=== PATIENT | female | born 1990 | race Caucasian/White ===

== ENCOUNTER 2018-08-23 11:55 | Emergency (ER) | payer OTHER ==
[2018-08-23 12:01] VITALS: RESP 16
[2018-08-23] MEDS ORDERED: SODIUM CHLORIDE 0.9% 1,000 ML IV STA ×2 (12:26→14:40)
--- NOTE | 2018-08-23 12:28 | ED ---
General Adult HPI - General Chief complaint: Arrhythmia/Palpitations Stated complaint: palpitations Time Seen by Provider: 08/23/18 12:05 Source: patient, RN notes reviewed Mode of arrival: ambulatory Limitations: no limitations - History of Present Illness Initial comments: 27-year-old female with a past medical history for GERD presents to the emergen cy department for a chief complaint of palpitations. Patient states she was at her first day at work when she started to feel her heart racing fast. States that she started to feel her face flush and felt like she was going to pass out. Patient states this happened 2 more times since 9:30 AM when the first episode occurred. Patient states that they did an EKG there that looked normal but fast. States she did feel nervous when this started but did not think she was there is enough to cause her to almost pass out. Patient did take Xanax this morning because she has a history of anxiety. Patient states she has felt like she has had a racing heart before but has never felt like she was going to pass out from it. Patient denies a full syncopal episode. Denies any chest pain or shortness of breath.Patient has no other complaints at this time including shortness of breath, chest pain, abdominal pain, nausea or vomiting, headache, or visual changes. - Related Data Home Medications Medication Instructions Recorded Confirmed ALPRAZolam [Xanax] 0.25 mg PO DAILY PRN 08/23/18 08/23/18 Gianvi 1 tab PO HS 08/23/18 08/23/18 Pantoprazole Sodium [Protonix] 40 mg PO BID PRN 08/23/18 08/23/18 Allergies Allergy/AdvReac Type Severity Reaction Status Date / Time Penicillins Allergy Unknown Verified 08/23/18 13:17 Review of Systems ROS Statement: Those systems with pertinent positive or pertinent negative responses have been documented in the HPI. ROS Other: All systems not noted in ROS Statement are negative. Past Medical History Past Medical History: GERD/Reflux History of Any Multi-Drug Resistant Organisms: None Reported Past Surgical History: Appendectomy Past Psychological History: Anxiety Smoking Status: Never smoker Past Alcohol Use History: Occasional Past Drug Use History: None Reported General Exam Limitations: no limitations General appearance: alert, anxious Head exam: Present: atraumatic, normocephalic, normal inspection Eye exam: Present: normal appearance, PERRL, EOMI. Absent: scleral icterus, conjunctival injection, periorbital swelling ENT exam: Present: normal exam, mucous membranes moist Neck exam: Present: normal inspection, full ROM. Absent: tenderness, meningismus, lymphadenopathy Respiratory exam: Present: normal lung sounds bilaterally. Absent: respiratory distress, wheezes, rales, rhonchi, stridor Cardiovascular Exam: Present: regular rate, normal rhythm, normal heart sounds. Absent: systolic murmur, diastolic murmur, rubs, gallop, clicks GI/Abdominal exam: Present: soft, normal bowel sounds. Absent: distended, tenderness, guarding, rebound, rigid Neurological exam: Present: alert, oriented X3, CN II-XII intact Psychiatric exam: Present: normal affect, normal mood Course Vital Signs 08/23/18 08/23/18 08/23/18 11:58 16:00 16:38 Temperature 97.5 F L 98.0 F Pulse Rate 117 H 101 H Pulse Rate [ 103 H Left Sitting Pulse Oximetery ] Pulse Rate [ 116 H Left Standing Pulse Oximetery ] Pulse Rate [ 96 Left Supine Pulse Oximetery ] Respiratory 16 16 Rate Blood Pressure 135/88 124/76 Blood Pressure 144/92 [Right Arm Sitting] Blood Pressure 147/86 [Right Arm Standing] Blood Pressure 132/81 [Right Arm Supine] O2 Sat by Pulse 99 99 Oximetry 08/23/18 17:00 Temperature Pulse Rate 82 Pulse Rate [ Left Sitting Pulse Oximetery ] Pulse Rate [ Left Standing Pulse Oximetery ] Pulse Rate [ Left Supine Pulse Oximetery ] Respiratory Rate Blood Pressure Blood Pressure [Right Arm Sitting] Blood Pressure [Right Arm Standing] Blood Pressure [Right Arm Supine] O2 Sat by Pulse 99 Oximetry EKG Findings - EKG Comments: EKG Findings:: Normal sinus rhythm, ventricular rate 100, MA interval 122, QRS duration 96, QTc 456 Medical Decision Making - Medical Decision Making 27-year-old female presents to the emergency department for a chief complaint of near syncopal episode. This occurred a few times at work today. On presentation patient is tachycardic in the 117, otherwise vitals are stable. She is anxious and shaking. States she does feel lightheaded. Denies fevers or chills. On exam there are no neurologic deficits. Lungs are clear to patient bilaterally. CBC and CMP are unremarkable. Calcium mildly elevated. Troponin negative. D-dimer within normal limits. Urine does not show any evidence of infection. HCG is negative. Chest x-ray shows no acute cardiopulmonary process. Patient was given 2 L of fluids. Patient was given Ativan which worsened her shaking, subsequently given Benadryl. Patient reevaluated, still feeling lightheaded. Still tachycardic in the 110s. At that point TSH was added which was 1.140, within normal limits. Orthostatics are normal. Patient reevaluated after receiving fluids. Heart rate is in the 80s. She is much b arun appearing. I did offer admission to patient however she refuses this would rather go home. I do suspect that this is secondary to anxiety as patient did start her new job today and has a baseline anxiety, takes Xanax. However I did discuss falling with primary care for possible Holter monitor and echo. This was returning here if she has any worsening symptoms that she does agree to do. - Lab Data Result diagrams: 08/23/18 12:40 08/23/18 12:40 Lab Results 08/23/18 08/23/18 08/23/18 Range/Units 12:09 12:40 12:40 WBC 7.4 (3.8-10.6) k/uL RBC 5.18 (3.80-5.40) m/uL Hgb 13.8 (11.4-16.0) gm/dL Hct 41.9 (34.0-46.0) % MCV 80.9 (80.0-100.0) fL MCH 26.7 (25.0-35.0) pg MCHC 32.9 (31.0-37.0) g/dL RDW 13.9 (11.5-15.5) % Plt Count 266 (150-450) k/uL Neutrophils % 74 % Lymphocytes % 20 % Monocytes % 4 % Eosinophils % 1 % Basophils % 0 % Neutrophils # 5.4 (1.3-7.7) k/uL Lymphocytes # 1.5 (1.0-4.8) k/uL Monocytes # 0.3 (0-1.0) k/uL Eosinophils # 0.1 (0-0.7) k/uL Basophils # 0.0 (0-0.2) k/uL PT (9.0-12.0) sec INR (<1.2) APTT (22.0-30.0) sec D-Dimer (<0.60) mg/L FEU Sodium 140 (137-145) mmol/L Potassium 4.1 (3.5-5.1) mmol/L Chloride 104 (98-107) mmol/L Carbon Dioxide 25 (22-30) mmol/L Anion Gap 11 mmol/L BUN 14 (7-17) mg/dL Creatinine 0.58 (0.52-1.04) mg/dL Est GFR (CKD-EPI)AfAm >90 (>60 ml/min/1.73 sqM) Est GFR (CKD-EPI)NonAf >90 (>60 ml/min/1.73 sqM) Glucose 89 (74-99) mg/dL Calcium 10.5 H (8.4-10.2) mg/dL Magnesium 2.1 (1.6-2.3) mg/dL Total Bilirubin 0.5 (0.2-1.3) mg/dL AST 16 (14-36) U/L ALT 14 (9-52) U/L Alkaline Phosphatase 87 (38-126) U/L Troponin I (0.000-0.034) ng/mL Total Protein 8.1 (6.3-8.2) g/dL Albumin 4.9 (3.5-5.0) g/dL TSH 1.140 (0.465-4.680) mIU/L Urine Color Urine Appearance (Clear) Urine pH (5.0-8.0) Ur Specific [place] (1.001-1.035) Urine Protein (Negative) Urine Glucose (UA) (Negative) Urine Ketones (Negative) Urine Blood (Negative) Urine Nitrite (Negative) Urine Bilirubin (Negative) Urine Urobilinogen (<2.0) mg/dL Ur Leukocyte Esterase (Negative) Urine RBC (0-5) /hpf Urine WBC (0-5) /hpf Ur Squamous Epith Cells (0-4) /hpf Urine Bacteria (None) /hpf Urine Mucus (None) /hpf Urine HCG, Qual (Not Detectd) 08/23/18 08/23/18 08/23/18 Range/Units 12:40 12:40 12:40 WBC (3.8-10.6) k/uL RBC (3.80-5.40) m/uL Hgb (11.4-16.0) gm/dL Hct (34.0-46.0) % MCV (80.0-100.0) fL MCH (25.0-35.0) pg MCHC (31.0-37.0) g/dL RDW (11.5-15.5) % Plt Count (150-450) k/uL Neutrophils % % Lymphocytes % % Monocytes % % Eosinophils % % Basophils % % Neutrophils # (1.3-7.7) k/uL Lymphocytes # (1.0-4.8) k/uL Monocytes # (0-1.0) k/uL Eosinophils # (0-0.7) k/uL Basophils # (0-0.2) k/uL PT 10.5 (9.0-12.0) sec INR 1.0 (<1.2) APTT 24.3 (22.0-30.0) sec D-Dimer 0.31 (<0.60) mg/L FEU Sodium (137-145) mmol/L Potassium (3.5-5.1) mmol/L Chloride (98-107) mmol/L Carbon Dioxide (22-30) mmol/L Anion Gap mmol/L BUN (7-17) mg/dL Creatinine (0.52-1.04) mg/dL Est GFR (CKD-EPI)AfAm (>60 ml/min/1.73 sqM) Est GFR (CKD-EPI)NonAf (>60 ml/min/1.73 sqM) Glucose (74-99) mg/dL Calcium (8.4-10.2) mg/dL Magnesium (1.6-2.3) mg/dL Total Bilirubin (0.2-1.3) mg/dL AST (14-36) U/L ALT (9-52) U/L Alkaline Phosphatase (38-126) U/L Troponin I <0.012 (0.000-0.034) ng/mL Total Protein (6.3-8.2) g/dL Albumin (3.5-5.0) g/dL TSH (0.465-4.680) mIU/L Urine Color Urine Appearance (Clear) Urine pH (5.0-8.0) Ur Specific [place] (1.001-1.035) Urine Protein (Negative) Urine Glucose (UA) (Negative) Urine Ketones (Negative) Urine Blood (Negative) Urine Nitrite (Negative) Urine Bilirubin (Negative) Urine Urobilinogen (<2.0) mg/dL Ur Leukocyte Esterase (Negative) Urine RBC (0-5) /hpf Urine WBC (0-5) /hpf Ur Squamous Epith Cells (0-4) /hpf Urine Bacteria (None) /hpf Urine Mucus (None) /hpf Urine HCG, Qual (Not Detectd) 08/23/18 08/23/18 Range/Units 13:47 13:47 WBC (3.8-10.6) k/uL RBC (3.80-5.40) m/uL Hgb (11.4-16.0) gm/dL Hct (34.0-46.0) % MCV (80.0-100.0) fL MCH (25.0-35.0) pg MCHC (31.0-37.0) g/dL RDW (11.5-15.5) % Plt Count (150-450) k/uL Neutrophils % % Lymphocytes % % Monocytes % % Eosinophils % % Basophils % % Neutrophils # (1.3-7.7) k/uL Lymphocytes # (1.0-4.8) k/uL Monocytes # (0-1.0) k/uL Eosinophils # (0-0.7) k/uL Basophils # (0-0.2) k/uL PT (9.0-12.0) sec INR (<1.2) APTT (22.0-30.0) sec D-Dimer (<0.60) mg/L FEU Sodium (137-145) mmol/L Potassium (3.5-5.1) mmol/L Chloride (98-107) mmol/L Carbon Dioxide (22-30) mmol/L Anion Gap mmol/L BUN (7-17) mg/dL Creatinine (0.52-1.04) mg/dL Est GFR (CKD-EPI)AfAm (>60 ml/min/1.73 sqM) Est GFR (CKD-EPI)NonAf (>60 ml/min/1.73 sqM) Glucose (74-99) mg/dL Calcium (8.4-10.2) mg/dL Magnesium (1.6-2.3) mg/dL Total Bilirubin (0.2-1.3) mg/dL AST (14-36) U/L ALT (9-52) U/L Alkaline Phosphatase (38-126) U/L Troponin I (0.000-0.034) ng/mL Total Protein (6.3-8.2) g/dL Albumin (3.5-5.0) g/dL TSH (0.465-4.680) mIU/L Urine Color Yellow Urine Appearance Clear (Clear) Urine pH 5.5 (5.0-8.0) Ur Specific [place] 1.019 (1.001-1.035) Urine Protein Negative (Negative) Urine Glucose (UA) Negative (Negative) Urine Ketones Negative (Negative) Urine Blood Trace H (Negative) Urine Nitrite Negative (Negative) Urine Bilirubin Negative (Negative) Urine Urobilinogen <2.0 (<2.0) mg/dL Ur Leukocyte Esterase Negative (Negative) Urine RBC <1 (0-5) /hpf Urine WBC 2 (0-5) /hpf Ur Squamous Epith Cells 2 (0-4) /hpf Urine Bacteria Rare H (None) /hpf Urine Mucus Few H (None) /hpf Urine HCG, Qual Not Detected (Not Detectd) Disposition Clinical Impression: Near syncope Disposition: HOME SELF-CARE Condition: Good Instructions (If sedation given, give patient instructions): Heart Palpitations (ED), Near Syncope (ED) Additional Instructions: Please follow up with primary care for possible Holter monitor and echo. If you're having any worsening symptoms return here to the emergency Department immediately. Is patient prescribed a controlled substance at d/c from ED?: No Referrals: Mode Ann DO [Primary Care Provider] - 1-2 days Time of Disposition: 17:09
[2018-08-23 12:59] LABS: Basophils % (A) 0 %; Eosinophils # (A) 0.1 k/uL (0-0.7); Eosinophils % (A) 1 %; HCT 41.9 % (34.0-46.0); HGB 13.8 gm/dL (11.4-16.0); Lymphocytes # (A) 1.5 k/uL (1.0-4.8); Lymphocytes % (A) 20 %; MCH 26.7 pg (25.0-35.0); MCHC 32.9 g/dL (31.0-37.0); MCV 80.9 fL (80.0-100.0); Mean Platelet Volume 7.6; Monocytes # (A) 0.3 k/uL (0-1.0); Monocytes % (A) 4 %; Neutrophils # (A) 5.4 k/uL (1.3-7.7); Neutrophils % (A) 74 %; Platelet Count 266 k/uL (150-450); RBC 5.18 m/uL (3.80-5.40); RDW 13.9 % (11.5-15.5); WBC 7.4 k/uL (3.8-10.6)
[2018-08-23 13:07] LABS: ALT 14 U/L (9-52); AST 16 U/L (14-36); Albumin 4.9 g/dL (3.5-5.0); Alkaline Phosphatase 87 U/L (38-126); Anion Gap 11 mmol/L; Blood Urea Nitrogen 14 mg/dL (7-17); Calcium 10.5 mg/dL (8.4-10.2); Carbon Dioxide 25 mmol/L (22-30); Chloride 104 mmol/L (98-107); Glucose 89 mg/dL (74-99); Magnesium 2.1 mg/dL (1.6-2.3); Potassium 4.1 mmol/L (3.5-5.1); Sodium 140 mmol/L (137-145); Total Bilirubin 0.5 mg/dL (0.2-1.3); Total Protein 8.1 g/dL (6.3-8.2)
[2018-08-23 13:14] LABS: Partial Thromboplastin Time 24.3 sec (22.0-30.0); Prothrombin Time 10.5 sec (9.0-12.0)
--- NOTE | 2018-08-23 13:34 | XR ---
EXAMINATION TYPE: XR chest 2V DATE OF EXAM: 08/23/2018 COMPARISON: NONE HISTORY: Chest pain TECHNIQUE: Frontal and lateral views of the chest are obtained. FINDINGS: There is no focal air space opacity, pleural effusion, or pneumothorax seen. The cardiac silhouette size is within normal limits. The osseous structures are intact, there is a spinal curva ture. IMPRESSION: No acute cardiopulmonary process.
[2018-08-23] MEDS ORDERED: LORazepam 2 MG/ML INJ IV STA (14:41)
[2018-08-23 14:54] LABS: Appearance,Urine Clear (Clear); Bacteria,Urine Rare /hpf; Bilirubin,Urine Negative (Negative); Blood,Urine Trace (Negative); Color,Urine Yellow; Glucose,Urine (UA) Negative (Negative); Ketones,Urine Negative (Negative); Leukocyte Esterase,Urine Negative (Negative); Mucus,Urine Few /hpf; Nitrite,Urine Negative (Negative); PH, Urine 5.5 (5.0-8.0); Protein,Urine Negative (Negative); RBC,Urine <1 /hpf (0-5); Specific Gravity,Urine 1.019 (1.001-1.035); Squamous Epithelial Cell,Urine 2 /hpf (0-4); Urobilinogen,Urine <2.0 mg/dL (<2.0); WBC,Urine 2 /hpf (0-5)
[2018-08-23] MEDS ORDERED: diphenhydrAMINE 50 MG/ML 1 ML VIAL IVP STA (15:07)
[2018-08-23 16:42] VITALS: BP 124/76; TEMP 98
[2018-08-23 17:01] VITALS: PULSE 82
== END 2018-08-23 17:25 | disposition home or self-care (01) ==
LOC: EC 11:55
DX: R55 Syncope and collapse (principal); E83.52 Hypercalcemia; Z53.29 Procedure and treatment not carried out because of patient's decision for other reasons; Z79.3 Long term (current) use of hormonal contraceptives; Z88.0 Allergy status to penicillin
CPT/HCPCS: 36415; 93005; 85379; 80053; 84443; 83735; 84484; 85025; 85610; 85730; 81001; 81025; 71046; 99285; 96374; 96375; 96361 ×2; J2060; J1200

== ENCOUNTER → 2020-01-30 | Outpatient (CLI) | payer MEDICAID ==
--- NOTE | 2020-01-31 10:57 | MM ---
Reason for exam: clinical finding. Baseline mammogram. Physical Findings: Nurse Summary: right breast palpable 1 x 1.5cm, movable, soft (nurse ts). MG Diagnostic Mammo w CAD DK Bilateral CC and MLO view(s) were taken. The breast tissue is heterogeneously dense. This may lower the sensitivity of mammography. Finding: There is a typically benign equal density (isodense), circumscribed oval mass in the upper outer quadrant, subareolar position of the right breast consistent with ultrasound findings and palpable abnormality. These results were verbally communicated with the patient and result sheet given to the patient on 01/30/20. ASSESSMENT: Suspicious, BI-RAD 4 RECOMMENDATION: Ultrasound core biopsy of the right breast. Manage on a clinical basis with regard to left breast. Called office with mammographic findings and has scheduled an appointment for the patient for 02/08/20 at 12:[address] Bustamante. Biopsy scheduled for 02/11/20 at 1:00. PRELIMINARY REPORT CALLED AND FAXED TO DR. BUSTAMANTE ON 01/30/20.
--- NOTE | 2020-01-31 10:59 | USB ---
Reason for exam: clinical finding. Indicated problem(s): palpable abnormality in both breasts. Physical Findings: Nurse Summary: right breast palpable 1 x 1.5cm, movable, soft (nurse ts). US Breast BILAT Right complete breast ultrasound includes all four quadrants, the retroareolar region and axilla. Finding demonstrates a 1.8 x 0.9 x 1.9cm hypoechoic lesion at 11 o'clock. Left complete breast ultrasound includes all four quadrants, the retroareolar region and axilla. Finding demonstrates no cystic or solid lesion seen. These results were verbally communicated with the patient and result sheet given to the patient on 01/30/20. ASSESSMENT: Suspicious, BI-RAD 4 RECOMMENDATION: Ultrasound core biopsy of the right breast. Called office with mammographic findings and has scheduled an appointment for the patient for 02/08/20 at 12:[address] Bustamante. Biopsy scheduled for 02/11/20 at 1:00. PRELIMINARY REPORT CALLED AND FAXED TO DR. BUSTAMANTE ON 01/30/20.
== END | disposition home or self-care (01) ==
LOC: RADUSWWP 10:47
PROVIDERS: ATTEND Family Medicine
DX: N63.20 Unspecified lump in the left breast, unspecified quadrant (principal); N63.10 Unspecified lump in the right breast, unspecified quadrant; Z80.3 Family history of malignant neoplasm of breast
CPT/HCPCS: 77066

== ENCOUNTER → 2020-02-08 | Outpatient (CLI) | payer MEDICAID ==
--- NOTE | 2020-02-08 12:44 | P.GSHP ---
History of Present Illness H&P Date: 02/08/20 Chief Complaint: mass right breast Hannah is a 29-year-old female seen in consultation for Luz Cruz who noted a lump in her right breast approximately 1 year ago. She states it is not increased in size. She had a recent bilateral mammogram performed which revealed a circumscribed oval mass in the upper outer quadrant subareolar position of the right breast. No lesions of concern were described in the left breast. The patient then had bilateral ultrasounds performed. The ultrasound revealed a 1.8 x 1.9 cm lesion in the 11 o'clock position of the right breast. No lesions of concern were noted in the left breast. Ultrasound core biopsy of the right breast was recommended. She does not feel any other lumps masses or nodules in her breast. She is not complaining of any nipple discharge or skin changes. She has minimal bilateral tenderness in her breast, she cannot tell if the pain is cyclical. She has not had a menstrual period and up proximally 2 year she is presently on continuous control pills, the reason is to treat possible polycystic ovarian disease, and possible endometriosis. Caffeine: 1 cup of coffee/day Nicotine: Negative Theophylline: I will times a week Family history: paternal grandmother: of cancer ? type breast cancer on mothers side not sure jeanne has it Hormonal history: Menarche: 16 G0 periods not for two years BCP: yes since 20 hormones: none Surgical history: 1. D&C/laparoscopy/appendectomy Medical history: IBS arthritis in both knees Polycystic ovarian disease Possible endometriosis GERD Social History: smoke: none alcohol: Several times a week Drugs: Negative - Constitutional Constitutional: Reports sweats - EENT Eyes: denies blurred vision, denies pain Ears: deny: decreased hearing, tinnitus Ears, nose, mouth and throat: Reports headache, Denies sore throat - Breasts Breasts: bilateral: as per HPI - Cardiovascular Cardiovascular: Denies chest pain, Denies shortness of breath - Respiratory Respiratory: Denies cough, Denies 7 - Gastrointestinal Comment: IBS - Genitourinary (Female) Genitourinary: Denies dysuria, Denies hematuria - Menstruation Menstruation: Reports as per HPI - Musculoskeletal Comment: knee pain bilateral - Integumentary Integumentary: Denies pruritus, Denies rash - Neurological Neurological: Denies numbness, Denies weakness - Psychiatric Psychiatric: Reports anxiety, Reports depression - Endocrine Endocrine: Denies fatigue, Denies weight change - Hematologic/Lymphatic Comment: none - Allergic/Immunologic Allergic/Immunologic: Reports seasonal allergies Past Medical History Past Medical History: GERD/Reflux History of Any Multi-Drug Resistant Organisms: None Reported Past Surgical History: Appendectomy Past Psychological History: Anxiety Past Alcohol Use History: Occasional Past Drug Use History: None Reported Medications and Allergies Home Medications Medication Instructions Recorded Confirmed Type Gianvi 1 tab PO HS 08/23/18 02/08/20 History Pantoprazole Sodium [Protonix] 40 mg PO BID PRN 08/23/18 02/08/20 History FLUoxetine HCL [PROzac] 40 mg PO BID 01/31/20 02/08/20 History ALPRAZolam [Xanax] 0.25 mg PO HS PRN 02/08/20 02/08/20 History Allergies Allergy/AdvReac Type Severity Reaction Status Date / Time Penicillins Allergy Unknown Verified 02/08/20 12:18 lorazepam [From Ativan] AdvReac Nausea Unverified 02/08/20 12:18 Surgical - Exam BMI 29 - General well developed, well nourished, no distress - Eyes normal ocular movement - ENT no hearing loss, no congestion - Neck no masses, trachea midline - Respiratory normal respiratory effort, clear to auscultation - Cardiovascular Rhythm: regular Heart Sounds: normal: S1, S2 - Abdomen Abdomen: soft, non tender, no guarding, no rigid, no rebound - Integumentary normal turgor - Neurologic no disoriented, no combative - Musculoskeletal normal gait - Psychiatric oriented to time, oriented to person, oriented to place, speech is normal, memory intact breast exam: BRA: 36DDD inspection: grade 3 ptosis bilateral Palpation: Right breast: Positional exam fibrocystic changes, increased nodularity approximately 11 o'clock position approximately 1.8 cm in size corresponding to radiographic abnormality Right axilla: No adenopathy of concern Left breast: Multi-positional exam fibrocystic changes no discrete dominant masses or nodules of concern Left axilla: No adenopathy of concern Results reviewed mammogram and ultrasound Assessment and Plan Assessment: Impression: 1. Fibrocystic changes bilateral 2. Increased nodularity 11 o'clock position right breast 3. IBS 4. Possible polycystic ovarian disease 5. Possible endometriosis 6. Radiographic abnormality right breast Plan: 1. Ultrasound-guided core biopsy lesion and right breast 2. Follow up after ultrasound core biopsy CC: Luz Cruz encounter 30 minutes, > 50% of time in planning and counselling
[2020-02-08 13:51] VITALS: BP 124/87; PULSE 103; RESP 16; TEMP 98.1
== END | disposition home or self-care (01) ==
LOC: WWCWWP 11:45
PROVIDERS: ATTEND Surgery
DX: Z53.9 Procedure and treatment not carried out, unspecified reason (principal)

== ENCOUNTER → 2020-02-11 | Day surgery (SDC) | payer MEDICAID ==
[2020-02-11 12:32] VITALS: RESP 16
--- NOTE | 2020-02-11 14:36 | USB ---
EXAMINATION TYPE: US biopsy breast VAD RT, MG diagnostic mammo RT wo CAD DATE OF EXAM: 02/11/2020 CLINICAL HISTORY: N63 Breast lump/mass. TECHNIQUE: Ultrasound guided core biopsy of right 11:00 breast. COMPARISON: NONE FINDINGS: The procedure of ultrasound guided core biopsy was explained to the patient. Benefits, alternatives, and risks were discussed. An informed consent was then obtained. The patient was placed in supine positioning for imaging and for the procedure. The overlying skin was prepped and draped in usual sterile fashion. Lidocaine buffered with bicarbonate was used as anesthetic into the skin and subcutaneous tissue up to area of concern in the right 11:00 breast. A margret was made with surgical scalpel. Under ultrasound guidance, a 12-gauge vacuum assisted biopsy gun device was used to obtain 3 core samples. Following this, a biopsy clip was left in lesion. Postprocedural mammogram demonstrates appropriate clip placement. The patient tolerated the procedure well without any immediate complication. The patient was kept in the radiology department for short stay after the procedure and then discharged home in stable condition. IMPRESSION: Successful, uncomplicated ultrasound guided core biopsy of area of concern in the right 11:00 breast, full pathology results to follow. Pathology Results: Benign RIGHT BREAST, ULTRASOUND GUIDED CORE BIOPSY: Fibroadenoma. Recommendation Follow up ultrasound of the right breast in 6 months. CURLYD
[2020-02-11 16:13] VITALS: BP 120/80; PULSE 97; TEMP 97.7
== END ==
LOC: RADUSWWP 11:54
PROVIDERS: ATTEND Surgery
DX: D24.1 Benign neoplasm of right breast (principal)
CPT/HCPCS: 88305; 77065; 19083; A4648; J2001

== ENCOUNTER → 2020-02-15 | Outpatient (CLI) | payer MEDICAID ==
--- NOTE | 2020-02-15 14:55 | P.PN ---
Subjective Progress Note Date: 02/15/20 Principal diagnosis: fibroadenoma Hannah is a 29 year old white female status post a core biopsy of a lesion in the right breast on 02-11-20. This was a fibroadenoma. She tolerated the procedure well. She states it is still sore. Objective - Constitutional General appearance: Present: average body habitus - EENT Eyes: Present: EOMI ENT: Present: hearing grossly normal - Neck Neck: Present: normal ROM - Respiratory Respiratory: bilateral: CTA - Cardiovascular Rhythm: regular Heart sounds: normal: S1, S2 - Gastrointestinal General gastrointestinal: Present: soft - Integumentary Integumentary: Present: normal turgor - Musculoskeletal Musculoskeletal: Present: gait normal - Psychiatric Psychiatric: Present: A&O x's 3 - Additional findings Additional findings: right breast biopsy site clean and dry no infection, small hematoma, area fibroadenoma still palpable approximately 1.5 cm in size Patient developed an area of slight swelling in her left axilla the contralateral axilla which she states is tender This was unrelated to the core biopsy Assessment and Plan Assessment: Impression: 1. Fibroadenoma right breast palpable 2. Probable ingrown hair left axilla slightly erythematous and tender Plan: 1. Patient is going to consider removal of the fibroadenoma at this time we are going to let the hematoma resolved 2. warm compresses to area of axilla if the area remains erythematous 3. Bactrim antibiotic treatment as she is ALLERGIC to penicillin CC: Stefany Eagle encounter 10 minutes > 50% of time in planning and counselling
[2020-02-15 15:01] VITALS: BP 141/84; PULSE 130; RESP 18; TEMP 97.8
== END | disposition home or self-care (01) ==
LOC: WWCWWP 14:34
PROVIDERS: ATTEND Surgery
DX: Z53.9 Procedure and treatment not carried out, unspecified reason (principal)

== ENCOUNTER 2020-09-04 06:08 | Emergency (ER) | payer MEDICAID ==
[2020-09-04 06:21] VITALS: BP 134/83; PULSE 104; RESP 22; TEMP 97.8
[2020-09-04] MEDS ORDERED: SODIUM CHLORIDE 0.9% 1,000 ML IV STA ×2 (06:27)
[2020-09-04] MEDS ORDERED: ONDANSETRON 4 MG/2 ML VIAL IVP STA (06:27)
[2020-09-04] MEDS ORDERED: KETOROLAC 15 MG/ML 1 ML VIAL IVP STA (06:27)
[2020-09-04] MEDS ORDERED: MORPHINE SULFATE 4 MG/ML SYRINGE IV STA (06:27)
[2020-09-04] MEDS ORDERED: SODIUM CHLORIDE 0.9% 500 ML 500 ML IV STA (06:27)
[2020-09-04 06:53] LABS: Basophils % (A) 0 %; Eosinophils % (A) 0 %; HCT 37.4 % (34.0-46.0); HGB 11.9 gm/dL (11.4-16.0); Lymphocytes # (A) 1.4 k/uL (1.0-4.8); Lymphocytes % (A) 14 %; MCH 24.3 pg (25.0-35.0); MCHC 31.9 g/dL (31.0-37.0); MCV 76.1 fL (80.0-100.0); Mean Platelet Volume 7.3; Microcytosis Slight; Monocytes # (A) 0.3 k/uL (0-1.0); Monocytes % (A) 4 %; Neutrophils % (A) 81 %; Platelet Count 339 k/uL (150-450); RBC 4.92 m/uL (3.80-5.40); RDW 15.2 % (11.5-15.5); WBC 9.9 k/uL (3.8-10.6)
[2020-09-04 07:05] LABS: ALT 20 U/L (4-34); AST 22 U/L (14-36); African American GFR (CKD) >90 (>60 ml/min/1.73 sqM); Albumin 4.8 g/dL (3.5-5.0); Alkaline Phosphatase 124 U/L (38-126); Amylase 59 U/L (30-110); Anion Gap 15 mmol/L; Blood Urea Nitrogen 17 mg/dL (7-17); Calcium 10.4 mg/dL (8.4-10.2); Carbon Dioxide 20 mmol/L (22-30); Chloride 103 mmol/L (98-107); Glucose 176 mg/dL (74-99); Lipase 58 U/L (23-300); Non-African American GFR(CKD) >90 (>60 ml/min/1.73 sqM); Potassium 4.2 mmol/L (3.5-5.1); Sodium 138 mmol/L (137-145); Total Bilirubin 0.4 mg/dL (0.2-1.3); Total Protein 7.3 g/dL (6.3-8.2)
--- NOTE | 2020-09-04 07:09 | ED ---
Abdominal Pain HPI - General Chief Complaint: Abdominal Pain Stated Complaint: Possible kidney stone Time Seen by Provider: 09/04/20 06:23 Source: patient, family Mode of arrival: ambulatory Limitations: no limitations - Related Data Home Medications Medication Instructions Recorded Confirmed Gianvi 1 tab PO HS 08/23/18 02/15/20 Pantoprazole Sodium [Protonix] 40 mg PO BID PRN 08/23/18 02/15/20 FLUoxetine HCL [PROzac] 40 mg PO BID 01/31/20 02/15/20 Allergies Allergy/AdvReac Type Severity Reaction Status Date / Time Penicillins Allergy Unknown Verified 02/15/20 15:01 lorazepam [From Ativan] AdvReac Nausea Verified 02/15/20 15:01 Review of Systems ROS Statement: Those systems with pertinent positive or pertinent negative responses have been documented in the HPI. ROS Other: All systems not noted in ROS Statement are negative. Past Medical History Past Medical History: GERD/Reflux Additional Past Medical History / Comment(s): arthritis. endometriosis History of Any Multi-Drug Resistant Organisms: None Reported Past Surgical History: Appendectomy Additional Past Surgical History / Comment(s): D & C Past Anesthesia/Blood Transfusion Reactions: Postoperative Nausea & Vomiting (PONV) Past Psychological History: Anxiety, Depression Smoking Status: Never smoker Past Alcohol Use History: Occasional Past Drug Use History: None Reported General Exam Limitations: no limitations Course Vital Signs 09/04/20 06:16 Temperature 97.8 F Pulse Rate 104 H Respiratory 22 Rate Blood Pressure 134/83 O2 Sat by Pulse 98 Oximetry Medical Decision Making - Lab Data Result diagrams: 09/04/20 06:45 09/04/20 06:45 Lab Results 09/04/20 09/04/20 Range/Units 06:45 06:45 WBC 9.9 (3.8-10.6) k/uL RBC 4.92 (3.80-5.40) m/uL Hgb 11.9 (11.4-16.0) gm/dL Hct 37.4 (34.0-46.0) % MCV 76.1 L (80.0-100.0) fL MCH 24.3 L (25.0-35.0) pg MCHC 31.9 (31.0-37.0) g/dL RDW 15.2 (11.5-15.5) % Plt Count 339 (150-450) k/uL MPV 7.3 Neutrophils % 81 % Lymphocytes % 14 % Monocytes % 4 % Eosinophils % 0 % Basophils % 0 % Neutrophils # 8.0 H (1.3-7.7) k/uL Lymphocytes # 1.4 (1.0-4.8) k/uL Monocytes # 0.3 (0-1.0) k/uL Eosinophils # 0.0 (0-0.7) k/uL Basophils # 0.0 (0-0.2) k/uL Microcytosis Slight Sodium 138 (137-145) mmol/L Potassium 4.2 (3.5-5.1) mmol/L Chloride 103 (98-107) mmol/L Carbon Dioxide 20 L (22-30) mmol/L Anion Gap 15 mmol/L BUN 17 (7-17) mg/dL Creatinine 0.76 (0.52-1.04) mg/dL Est GFR (CKD-EPI)AfAm >90 (>60 ml/min/1.73 sqM) Est GFR (CKD-EPI)NonAf >90 (>60 ml/min/1.73 sqM) Glucose 176 H (74-99) mg/dL Calcium 10.4 H (8.4-10.2) mg/dL Total Bilirubin 0.4 (0.2-1.3) mg/dL AST 22 (14-36) U/L ALT 20 (4-34) U/L Alkaline Phosphatase 124 (38-126) U/L Total Protein 7.3 (6.3-8.2) g/dL Albumin 4.8 (3.5-5.0) g/dL Amylase 59 (30-110) U/L Lipase 58 (23-300) U/L Disposition Clinical Impression: Abdominal pain, Left ureteral stone Disposition: HOME SELF-CARE Condition: Good Instructions (If sedation given, give patient instructions): Kidney Stones (ED) Is patient prescribed a controlled substance at d/c from ED?: No Referrals: Audi Colon MD [Primary Care Provider] - 1-2 days
[2020-09-04] MEDS ORDERED: IBUPROFEN 600 MG STARTER PACK 4 TAB BTL PO STA (07:36)
[2020-09-04] MEDS ORDERED: ONDANSETRON 4 MG ODT STARTER PACK 2 TAB BTL PO STA (07:36)
[2020-09-04] MEDS ORDERED: ACET/COD 300 MG/30 MG STARTER PACK 6 TAB BTL PO STA (07:36)
[2020-09-04] MEDS ORDERED: DIAZEPAM 5 MG/ML 2 ML INJ IVP STA (07:53)
--- NOTE | 2020-09-04 08:05 | CT ---
EXAM: CT Abdomen and Pelvis Without Intravenous Contrast CLINICAL HISTORY: abdominal pain TECHNIQUE: Axial computed tomography images of the abdomen and pelvis without intravenous contrast. CTDI is 9.57 mGy and DLP is 523.2 mGy-cm. This CT exam was performed using one or more of the following dose reduction techniques: automated exposure control, adjustment of the mA and/or kV according to patient size, and/or use of iterative reconstruction technique. COMPARISON: No relevant prior studies available. FINDINGS: Lung bases: Unremarkable. No mass. No consolidation. ABDOMEN: Liver: Unremarkable. Gallbladder and bile ducts: Unremarkable. No calcified stones. No ductal dilation. Pancreas: Unremarkable. No ductal dilation. Spleen: Unremarkable. No splenomegaly. Adrenals: Unremarkable. No mass. Kidneys and ureters: There is a 4 mm stone at the right UVJ resulting in mild right-sided hydronephrosis. Nonobstructive left nephrolithiasis, largest stone measuring 4 mm in the midpole. Stomach and bowel: Mild colonic diverticulosis. No obstruction. No mucosal thickening. PELVIS: Appendix: Status post appendectomy. Bladder: Unremarkable. No stones. Reproductive: Unremarkable as visualized. ABDOMEN and PELVIS: Intraperitoneal space: Unremarkable. No free air. No significant fluid collection. Bones/joints: No acute fracture. No dislocation. Soft tissues: Bilateral small fat-containing inguinal hernias. Vasculature: Unremarkable. No abdominal aortic aneurysm. Lymph nodes: Unremarkable. No enlarged lymph nodes. IMPRESSION: 1. A 4 mm stone at the right UVJ resulting in mild right-sided hydronephrosis. 2. Nonobstructive left nephrolithiasis. 3. Status post appendectomy. 4. Mild colonic diverticulosis.
[2020-09-04 09:34] LABS: Amorphous Sediment,Urine Rare /hpf; Appearance,Urine Cloudy (Clear); Bilirubin,Urine Negative (Negative); Blood,Urine Negative (Negative); Color,Urine Colorless; Glucose,Urine (UA) Negative (Negative); Ketones,Urine 1+ (Negative); Leukocyte Esterase,Urine Moderate (Negative); Mucus,Urine Occasional /hpf; Nitrite,Urine Negative (Negative); Protein,Urine Negative (Negative); RBC,Urine 3 /hpf (0-5); Squamous Epithelial Cell,Urine 5 /hpf (0-4); Urobilinogen,Urine <2.0 mg/dL (<2.0); WBC,Urine 3 /hpf (0-5)
== END 2020-09-04 08:44 | disposition home or self-care (01) ==
LOC: EC 06:08
DX: N21.1 Calculus in urethra (principal); K21.9 Gastro-esophageal reflux disease without esophagitis; F32.9 Major depressive disorder, single episode, unspecified; Z90.89 Acquired absence of other organs
CPT/HCPCS: 36415; 80053; 82150; 83690; 85025; 81001; 81025; 74176; 99284; 96374; 96375 ×3; 96361; J2270; J3360; J2405; J1885; S0119; 99285

== ENCOUNTER 2020-12-20 08:30 | Emergency (ER) | payer MEDICAID ==
[2020-12-20] MEDS ORDERED: SODIUM CHLORIDE 0.9% 1,000 ML IV STA (09:34)
[2020-12-20] MEDS ORDERED: HYDROmorphone 0.5 MG/0.5 ML SYRINGE IVP STA ×2 (09:34→12:46)
[2020-12-20] MEDS ORDERED: ONDANSETRON 4 MG/2 ML VIAL IVP STA (09:34)
--- NOTE | 2020-12-20 10:26 | ED ---
General Adult HPI - General Chief complaint: Abdominal Pain Stated complaint: kidney stone Time Seen by Provider: 12/20/20 08:52 Source: patient, RN notes reviewed Mode of arrival: ambulatory Limitations: no limitations - History of Present Illness Initial comments: 30-year-old female presents to the emergency room for a chief complaint of GERD, arthritis, kidney stones presents to the emergency room for a chief complaint of left flank pain. Patient reports this started this morning. This feels like a kidney stone. She has had several the past. Patient admits to nausea and vomiting with this. Patient states her last one was a few months ago.Patient has no other complaints at this time including shortness of breath, chest pain, nausea or vomiting, headache, or visual changes. - Related Data Home Medications Medication Instructions Recorded Confirmed Gianvi 1 tab PO HS 08/23/18 02/15/20 Pantoprazole Sodium [Protonix] 40 mg PO BID PRN 08/23/18 02/15/20 FLUoxetine HCL [PROzac] 40 mg PO BID 01/31/20 02/15/20 Previous Rx's Medication Instructions Recorded HYDROcodone/APAP 5-325MG [[place] 1 tab PO Q6HR PRN #10 tab 12/20/20 5-325] Ibuprofen [Motrin] 600 mg PO Q6HR PRN #20 tab 12/20/20 Ondansetron [Zofran ODT] 4 mg PO Q8HR PRN #15 tab 12/20/20 Tamsulosin [Flomax] 0.4 mg PO DAILY #20 cap 12/20/20 Allergies Allergy/AdvReac Type Severity Reaction Status Date / Time Penicillins Allergy Unknown Verified 12/20/20 08:40 lorazepam [From Ativan] AdvReac Nausea Verified 12/20/20 08:40 Review of Systems ROS Statement: Those systems with pertinent positive or pertinent negative responses have been documented in the HPI. ROS Other: All systems not noted in ROS Statement are negative. Past Medical History Past Medical History: GERD/Reflux Additional Past Medical History / Comment(s): arthritis. endometriosis, Kidney stones History of Any Multi-Drug Resistant Organisms: None Reported Past Surgical History: Appendectomy Additional Past Surgical History / Comment(s): D & C Past Anesthesia/Blood Transfusion Reactions: Postoperative Nausea & Vomiting (PONV) Past Psychological History: Anxiety, Depression Smoking Status: Never smoker Past Alcohol Use History: Occasional Past Drug Use History: None Reported General Exam Limitations: no limitations General appearance: alert, in no apparent distress Head exam: Present: atraumatic Eye exam: Present: normal appearance, PERRL, EOMI. Absent: scleral icterus, conjunctival injection ENT exam: Present: normal exam, mucous membranes moist Neck exam: Present: normal inspection, full ROM. Absent: tenderness Respiratory exam: Present: normal lung sounds bilaterally. Absent: respiratory distress, wheezes Cardiovascular Exam: Present: regular rate, normal rhythm, normal heart sounds GI/Abdominal exam: Present: soft, normal bowel sounds. Absent: distended, tenderness Back exam: Present: CVA tenderness (L). Absent: CVA tenderness (R) Neurological exam: Present: alert Course Vital Signs 12/20/20 08:38 Temperature 98.3 F Pulse Rate 94 Respiratory 20 Rate Blood Pressure 137/97 O2 Sat by Pulse 100 Oximetry Medical Decision Making - Medical Decision Making Vitals are stable. CBC CMP unremarkable. Urinalysis is negative. HCG is not detected. I did review previous CAT scan from a couple months ago which did show a 4 mm stone on the left side. X-ray of the abdomen shows a tiny calculus over the left mid abdomen at the level of L2 that may represent the calculus seen in the left kidney. Patient was given pain medication and did have improvement in symptoms. At this time patient will be discharged home but needs to follow-up with urology. Will return here for any worsening symptoms. Will be sent home with symptomatic care. - Lab Data Result diagrams: 12/20/20 10:33 12/20/20 10:33 Lab Results 12/20/20 12/20/20 12/20/20 Range/Units 10:33 10:33 10:33 WBC 13.6 H (3.8-10.6) k/uL RBC 5.17 (3.80-5.40) m/uL Hgb 12.6 (11.4-16.0) gm/dL Hct 40.7 (34.0-46.0) % MCV 78.6 L (80.0-100.0) fL MCH 24.3 L (25.0-35.0) pg MCHC 30.9 L (31.0-37.0) g/dL RDW 15.3 (11.5-15.5) % Plt Count 292 (150-450) k/uL MPV 8.5 Neutrophils % 87 % Lymphocytes % 10 % Monocytes % 2 % Eosinophils % 0 % Basophils % 0 % Neutrophils # 11.8 H (1.3-7.7) k/uL Lymphocytes # 1.3 (1.0-4.8) k/uL Monocytes # 0.3 (0-1.0) k/uL Eosinophils # 0.0 (0-0.7) k/uL Basophils # 0.0 (0-0.2) k/uL Hypochromasia Slight Sodium (137-145) mmol/L Potassium (3.5-5.1) mmol/L Chloride (98-107) mmol/L Carbon Dioxide (22-30) mmol/L Anion Gap mmol/L BUN (7-17) mg/dL Creatinine (0.52-1.04) mg/dL Est GFR (CKD-EPI)AfAm (>60 ml/min/1.73 sqM) Est GFR (CKD-EPI)NonAf (>60 ml/min/1.73 sqM) Glucose (74-99) mg/dL Calcium (8.4-10.2) mg/dL Total Bilirubin (0.2-1.3) mg/dL AST (14-36) U/L ALT (4-34) U/L Alkaline Phosphatase (38-126) U/L Total Protein (6.3-8.2) g/dL Albumin (3.5-5.0) g/dL Amylase (30-110) U/L Lipase (23-300) U/L Urine Color Yellow Urine Appearance Cloudy H (Clear) Urine pH 6.0 (5.0-8.0) Ur Specific [place] 1.026 (1.001-1.035) Urine Protein Trace H (Negative) Urine Glucose (UA) Negative (Negative) Urine Ketones Negative (Negative) Urine Blood Small H (Negative) Urine Nitrite Negative (Negative) Urine Bilirubin Negative (Negative) Urine Urobilinogen <2.0 (<2.0) mg/dL Ur Leukocyte Esterase Negative (Negative) Urine RBC 7 H (0-5) /hpf Urine WBC 7 H (0-5) /hpf Ur Squamous Epith Cells 5 H (0-4) /hpf Urine Bacteria Moderate H (None) /hpf Urine Mucus Many H (None) /hpf Urine HCG, Qual Not Detected (Not Detectd) 12/20/20 Range/Units 10:33 WBC (3.8-10.6) k/uL RBC (3.80-5.40) m/uL Hgb (11.4-16.0) gm/dL Hct (34.0-46.0) % MCV (80.0-100.0) fL MCH (25.0-35.0) pg MCHC (31.0-37.0) g/dL RDW (11.5-15.5) % Plt Count (150-450) k/uL MPV Neutrophils % % Lymphocytes % % Monocytes % % Eosinophils % % Basophils % % Neutrophils # (1.3-7.7) k/uL Lymphocytes # (1.0-4.8) k/uL Monocytes # (0-1.0) k/uL Eosinophils # (0-0.7) k/uL Basophils # (0-0.2) k/uL Hypochromasia Sodium 140 (137-145) mmol/L Potassium 4.9 (3.5-5.1) mmol/L Chloride 103 (98-107) mmol/L Carbon Dioxide 24 (22-30) mmol/L Anion Gap 13 mmol/L BUN 14 (7-17) mg/dL Creatinine 0.68 (0.52-1.04) mg/dL Est GFR (CKD-EPI)AfAm >90 (>60 ml/min/1.73 sqM) Est GFR (CKD-EPI)NonAf >90 (>60 ml/min/1.73 sqM) Glucose 98 (74-99) mg/dL Calcium 10.4 H (8.4-10.2) mg/dL Total Bilirubin 0.5 (0.2-1.3) mg/dL AST 29 (14-36) U/L ALT 22 (4-34) U/L Alkaline Phosphatase 109 (38-126) U/L Total Protein 8.0 (6.3-8.2) g/dL Albumin 5.0 (3.5-5.0) g/dL Amylase 71 (30-110) U/L Lipase 51 (23-300) U/L Urine Color Urine Appearance (Clear) Urine pH (5.0-8.0) Ur Specific [place] (1.001-1.035) Urine Protein (Negative) Urine Glucose (UA) (Negative) Urine Ketones (Negative) Urine Blood (Negative) Urine Nitrite (Negative) Urine Bilirubin (Negative) Urine Urobilinogen (<2.0) mg/dL Ur Leukocyte Esterase (Negative) Urine RBC (0-5) /hpf Urine WBC (0-5) /hpf Ur Squamous Epith Cells (0-4) /hpf Urine Bacteria (None) /hpf Urine Mucus (None) /hpf Urine HCG, Qual (Not Detectd) Disposition Clinical Impression: Nephrolithiasis Disposition: HOME SELF-CARE Condition: Good Instructions (If sedation given, give patient instructions): Kidney Stones (ED) Additional Instructions: Please take medications as directed. Follow-up with your doctor in one to 2 days. Return to the emergency room for any worsening symptoms. Prescriptions: Tamsulosin [Flomax] 0.4 mg PO DAILY #20 cap Ibuprofen [Motrin] 600 mg PO Q6HR PRN #20 tab PRN Reason: Pain HYDROcodone/APAP 5-325MG [[place] 5-325] 1 tab PO Q6HR PRN #10 tab PRN Reason: Pain Ondansetron [Zofran ODT] 4 mg PO Q8HR PRN #15 tab PRN Reason: Nausea Is patient prescribed a controlled substance at d/c from ED?: No Referrals: Audi Colon MD [Primary Care Provider] - 1-2 days Dell Avila MD [STAFF PHYSICIAN] - 1-2 days Time of Disposition: 12:49
[2020-12-20 11:03] LABS: Basophils % (A) 0 %; Eosinophils % (A) 0 %; HCT 40.7 % (34.0-46.0); HGB 12.6 gm/dL (11.4-16.0); Hypochromasia Slight; Lymphocytes # (A) 1.3 k/uL (1.0-4.8); Lymphocytes % (A) 10 %; MCH 24.3 pg (25.0-35.0); MCHC 30.9 g/dL (31.0-37.0); MCV 78.6 fL (80.0-100.0); Mean Platelet Volume 8.5; Monocytes # (A) 0.3 k/uL (0-1.0); Monocytes % (A) 2 %; Neutrophils # (A) 11.8 k/uL (1.3-7.7); Neutrophils % (A) 87 %; Platelet Count 292 k/uL (150-450); RBC 5.17 m/uL (3.80-5.40); RDW 15.3 % (11.5-15.5); WBC 13.6 k/uL (3.8-10.6)
[2020-12-20 11:14] LABS: ALT 22 U/L (4-34); African American GFR (CKD) >90 (>60 ml/min/1.73 sqM); Amylase 71 U/L (30-110); Anion Gap 13 mmol/L; Blood Urea Nitrogen 14 mg/dL (7-17); Calcium 10.4 mg/dL (8.4-10.2); Carbon Dioxide 24 mmol/L (22-30); Chloride 103 mmol/L (98-107); Glucose 98 mg/dL (74-99); Lipase 51 U/L (23-300); Non-African American GFR(CKD) >90 (>60 ml/min/1.73 sqM); Sodium 140 mmol/L (137-145); Total Bilirubin 0.5 mg/dL (0.2-1.3)
[2020-12-20 11:17] LABS: Potassium 4.9 mmol/L (3.5-5.1)
[2020-12-20 11:18] LABS: AST 29 U/L (14-36); Alkaline Phosphatase 109 U/L (38-126)
[2020-12-20] MEDS ORDERED: KETOROLAC 15 MG/ML 1 ML VIAL IVP STA (11:38)
[2020-12-20 11:47] LABS: Appearance,Urine Cloudy (Clear); Bacteria,Urine Moderate /hpf; Bilirubin,Urine Negative (Negative); Blood,Urine Small (Negative); Color,Urine Yellow; Glucose,Urine (UA) Negative (Negative); Ketones,Urine Negative (Negative); Leukocyte Esterase,Urine Negative (Negative); Mucus,Urine Many /hpf; Nitrite,Urine Negative (Negative); Protein,Urine Trace (Negative); RBC,Urine 7 /hpf (0-5); Specific Gravity,Urine 1.026 (1.001-1.035); Squamous Epithelial Cell,Urine 5 /hpf (0-4); Urobilinogen,Urine <2.0 mg/dL (<2.0); WBC,Urine 7 /hpf (0-5)
--- NOTE | 2020-12-20 11:49 | XR ---
EXAMINATION TYPE: XR KUB DATE OF EXAM: 12/20/2020 COMPARISON: 09/04/2020 CT of the abdomen and pelvis HISTORY: 30 years Female. STUDY INDICATION GIVEN: abdominal pain . TECHNIQUE: Abdominal radiograph IMPRESSION: Nonobstructive bowel gas pattern. Moderate amount of stool the colon. Tiny calculus projects over the left mid abdomen at the level of L2 represent the calculus seen in th e left kidney on prior CT. No evidence for organomegaly. Focal dextroconvex curvature of the thoracolumbar junction, increased angle compared to 09/04/2020. No acute osseous abnormality. Clear lung bases.
[2020-12-20 13:41] VITALS: BP 115/68; PULSE 77; RESP 18; TEMP 98.1
== END 2020-12-20 13:41 | disposition home or self-care (01) ==
LOC: EC 08:30
DX: N20.0 Calculus of kidney (principal); K21.9 Gastro-esophageal reflux disease without esophagitis; M19.90 Unspecified osteoarthritis, unspecified site; F32.9 Major depressive disorder, single episode, unspecified; F41.9 Anxiety disorder, unspecified; Z79.1 Long term (current) use of non-steroidal anti-inflammatories (NSAID); Z79.899 Other long term (current) drug therapy; Z88.0 Allergy status to penicillin; Z90.49 Acquired absence of other specified parts of digestive tract
CPT/HCPCS: 36415; 80053; 82150; 83690; 85025; 81001; 81025; 74018; 96374; 96375 ×2; 96376; 96361; 99284; J2405; J1885; J1170

== ENCOUNTER → 2021-05-29 | Outpatient (CLI) | payer MEDICAID ==
[2021-05-29 18:48] LABS: HCT 38.4 % (37.2-46.3); HGB 11.9 g/dL (12.0-15.0); MCH 25.2 pg (27.0-32.0); MCV 81.4 fL (80.0-97.0); Mean Platelet Volume 10.5 fL (9.5-12.2); NRBC Per 100 WBC 0 /100 WBCS (0.0-0.0); Platelet Count 261 X 10*3/uL (140-440); RBC 4.72 X 10*6/uL (4.10-5.20); RDW 16.1 % (11.5-14.5); WBC 7.77 X 10*3/uL (4.50-10.00)
[2021-05-29 19:06] LABS: Hepatitis B Surface Antigen Nonreactive (Nonreactive)
[2021-05-29 21:27] LABS: HIV 2 AB Non-Reactive (Non-Reactive); HIV AB P24 Non-Reactive (Non-Reactive); HIV P24 AG Non-Reactive (Non-Reactive)
== END | disposition home or self-care (01) ==
LOC: LABWHC1 11:33
PROVIDERS: ATTEND Obstetrics & Gynecology Obstetrics
DX: Z34.01 Encounter for supervision of normal first pregnancy, first trimester (principal); Z3A.00 Weeks of gestation of pregnancy not specified
CPT/HCPCS: 36415; 85027; 86762; 86780; 86850; 86900; 86901; 87340; 87390

== ENCOUNTER 2021-08-05 03:53 | Emergency (ER) | payer MEDICAID, OTHER ==
[2021-08-05] MEDS ORDERED: SODIUM CHLORIDE 0.9% 1,000 ML IV ONE (04:13)
[2021-08-05 04:42] LABS: Basophils % (A) 0 %; Eosinophils % (A) 0 %; HCT 35.1 % (34.0-46.0); HGB 11.6 gm/dL (11.4-16.0); Lymphocytes # (A) 1.1 k/uL (1.0-4.8); Lymphocytes % (A) 7 %; MCH 27.1 pg (25.0-35.0); MCHC 33.1 g/dL (31.0-37.0); Mean Platelet Volume 7.5; Monocytes # (A) 0.3 k/uL (0-1.0); Monocytes % (A) 2 %; Neutrophils # (A) 13.6 k/uL (1.3-7.7); Neutrophils % (A) 90 %; Platelet Count 242 k/uL (150-450); RBC 4.28 m/uL (3.80-5.40); RDW 15.9 % (11.5-15.5); WBC 15.1 k/uL (3.8-10.6)
[2021-08-05 04:45] LABS: Appearance,Urine Clear (Clear); Bilirubin,Urine Negative (Negative); Blood,Urine Negative (Negative); Color,Urine Yellow; Glucose,Urine (UA) Negative (Negative); Ketones,Urine Negative (Negative); Leukocyte Esterase,Urine Negative (Negative); Nitrite,Urine Negative (Negative); PH, Urine 6.5 (5.0-8.0); Protein,Urine Negative (Negative); Specific Gravity,Urine 1.017 (1.001-1.035); Urobilinogen,Urine <2.0 mg/dL (<2.0)
[2021-08-05 04:58] LABS: ALT 15 U/L (4-34); AST 20 U/L (14-36); African American GFR (CKD) >90 (>60 ml/min/1.73 sqM); Albumin 3.7 g/dL (3.5-5.0); Alkaline Phosphatase 91 U/L (38-126); Anion Gap 9 mmol/L; Blood Urea Nitrogen 8 mg/dL (7-17); Calcium 9.2 mg/dL (8.4-10.2); Carbon Dioxide 20 mmol/L (22-30); Chloride 105 mmol/L (98-107); Glucose 108 mg/dL (74-99); Non-African American GFR(CKD) >90 (>60 ml/min/1.73 sqM); Potassium 4.1 mmol/L (3.5-5.1); Sodium 134 mmol/L (137-145); Total Bilirubin 0.3 mg/dL (0.2-1.3); Total Protein 6.4 g/dL (6.3-8.2)
[2021-08-05] MEDS ORDERED: MORPHINE SULFATE 4 MG/ML SYRINGE IV STA (05:44)
[2021-08-05] MEDS ORDERED: SODIUM CHLORIDE 0.9% 1,000 ML IV STA (05:44)
[2021-08-05] MEDS ORDERED: ONDANSETRON 4 MG/2 ML VIAL IVP STA (05:55)
[2021-08-05] MEDS ORDERED: DILTIAZEM DRIP BOLUS FROM BAG 1 MG SOLN IV ONE (06:08)
--- NOTE | 2021-08-05 07:21 | ED ---
Female Urogenital HPI - General Source: patient Mode of arrival: ambulatory Limitations: no limitations - History of Present Illness Complaint: other -: hour(s) Radiation: L flank Severity: severe Quality: sharp Consistency: constant Improves with: none Worsens with: none Associated Symptoms: nausea/vomiting <Matthieu Zamudio - Last Filed: 08/05/21 07:13> <Hunter Kovacs - Last Filed: 08/05/21 09:46> - General Chief complaint: Urogenital Stated complaint: LT flank pain, 21 wks preg Time Seen by Provider: 08/05/21 05:04 - History of Present Illness Initial comments: This patient is 30-year-old woman with history of previous kidney stone, who presents to be evaluated for left flank and left lower quadrant pain that she states is very similar to the pain she had with the last kidney stone. She has not had a change in urination. No hematuria. No fever or chills. She has had some associated nausea and vomiting. No change in bowel movements. She did take some Tylenol without much change in the pain (Matthieu Zamudio) - Related Data Home Medications Medication Instructions Recorded Confirmed Gianvi 1 tab PO HS 08/23/18 02/15/20 Pantoprazole Sodium [Protonix] 40 mg PO BID PRN 08/23/18 02/15/20 FLUoxetine HCL [PROzac] 40 mg PO BID 01/31/20 02/15/20 Previous Rx's Medication Instructions Recorded HYDROcodone/APAP 5-325MG [[place] 1 tab PO Q6HR PRN #10 tab 12/20/20 5-325] Ibuprofen [Motrin] 600 mg PO Q6HR PRN #20 tab 12/20/20 Ondansetron [Zofran ODT] 4 mg PO Q8HR PRN #15 tab 12/20/20 Tamsulosin [Flomax] 0.4 mg PO DAILY #20 cap 12/20/20 Allergies Allergy/AdvReac Type Severity Reaction Status Date / Time Penicillins Allergy Unknown Verified 08/05/21 03:56 lorazepam [From Ativan] AdvReac Nausea Verified 08/05/21 03:56 Review of Systems ROS Other: All systems not noted in ROS Statement are negative. Constitutional: Denies: fever, chills Respiratory: Denies: cough, dyspnea Cardiovascular: Denies: chest pain, palpitations, edema Gastrointestinal: Reports: as per HPI, abdominal pain, nausea, vomiting. Denies: diarrhea, constipation, melena, hematochezia Genitourinary: Reports: other (There is no vaginal bleeding or discharge). Denies: dysuria, frequency, hematuria, discharge Musculoskeletal: Denies: back pain Skin: Denies: rash Neurological: Denies: headache, weakness <RobbMatthieu - Last Filed: 08/05/21 07:13> ROS Other: All systems not noted in ROS Statement are negative. <Hunter Kovacs - Last Filed: 08/05/21 09:46> ROS Statement: Those systems with pertinent positive or pertinent negative responses have been documented in the HPI. Past Medical History Past Medical History: GERD/Reflux Additional Past Medical History / Comment(s): arthritis. endometriosis, Kidney stones History of Any Multi-Drug Resistant Organisms: None Reported Past Surgical History: Appendectomy Additional Past Surgical History / Comment(s): D & C Past Anesthesia/Blood Transfusion Reactions: Postoperative Nausea & Vomiting (PONV) Past Psychological History: Anxiety, Depression Smoking Status: Never smoker Past Alcohol Use History: Occasional Past Drug Use History: None Reported <RobbMatthieu - Last Filed: 08/05/21 07:13> General Exam General appearance: alert, in no apparent distress Head exam: Present: atraumatic, normocephalic Eye exam: Present: normal appearance. Absent: scleral icterus, conjunctival injection Neck exam: Present: normal inspection Respiratory exam: Present: normal lung sounds bilaterally. Absent: respiratory distress, wheezes, rales, rhonchi, stridor Cardiovascular Exam: Present: normal rhythm, tachycardia, normal heart sounds. Absent: systolic murmur, diastolic murmur, rubs, gallop GI/Abdominal exam: Present: soft, mass (Gravid uterus is palpable to just above the umbilicus.). Absent: distended, tenderness, guarding, rebound, rigid, hernia Extremities exam: Present: normal inspection, normal capillary refill. Absent: pedal edema, calf tenderness Back exam: Present: normal inspection, CVA tenderness (L). Absent: CVA tenderness (R) Neurological exam: Present: alert Skin exam: Present: warm, dry, intact, normal color. Absent: rash <RobbMatthieu - Last Filed: 08/05/21 07:13> Course Vital Signs 08/05/21 08/05/21 03:54 06:10 Temperature 98.2 F Pulse Rate 110 H Respiratory 19 16 Rate Blood Pressure 121/75 134/71 O2 Sat by Pulse 96 96 Oximetry Medical Decision Making - Lab Data Result diagrams: 08/05/21 04:16 08/05/21 04:16 <Matthieu Zamudio - Last Filed: 08/05/21 07:13> - Lab Data Result diagrams: 08/05/21 04:16 08/05/21 04:16 <Hunter Kovacs - Last Filed: 08/05/21 09:46> - Medical Decision Making 30-year-old female currently 21 weeks with left-sided flank pain, history of kidney stones. Patient was signed out at shift change awaiting ultrasound. Ultrasound was performed which shows a left-sided hydronephrosis and renal calculi without an identified obstructive stone. Urinalysis is unremarkable. She has a mild leukocytosis of 15. Normal kidney function. I discussed case both with Dr. Tijerina as well as Dr. Maloney. At this time felt that the patient stable for outpatient follow-up. 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 Return parameters were discussed. (Hunter Kovacs) - Lab Data Lab Results 08/05/21 08/05/21 08/05/21 Range/Units 04:16 04:16 04:16 WBC 15.1 H (3.8-10.6) k/uL RBC 4.28 (3.80-5.40) m/uL Hgb 11.6 (11.4-16.0) gm/dL Hct 35.1 (34.0-46.0) % MCV 82.0 (80.0-100.0) fL MCH 27.1 (25.0-35.0) pg MCHC 33.1 (31.0-37.0) g/dL RDW 15.9 H (11.5-15.5) % Plt Count 242 (150-450) k/uL MPV 7.5 Neutrophils % 90 % Lymphocytes % 7 % Monocytes % 2 % Eosinophils % 0 % Basophils % 0 % Neutrophils # 13.6 H (1.3-7.7) k/uL Lymphocytes # 1.1 (1.0-4.8) k/uL Monocytes # 0.3 (0-1.0) k/uL Eosinophils # 0.0 (0-0.7) k/uL Basophils # 0.0 (0-0.2) k/uL Sodium 134 L (137-145) mmol/L Potassium 4.1 (3.5-5.1) mmol/L Chloride 105 (98-107) mmol/L Carbon Dioxide 20 L (22-30) mmol/L Anion Gap 9 mmol/L BUN 8 (7-17) mg/dL Creatinine 0.56 (0.52-1.04) mg/dL Est GFR (CKD-EPI)AfAm >90 (>60 ml/min/1.73 sqM) Est GFR (CKD-EPI)NonAf >90 (>60 ml/min/1.73 sqM) Glucose 108 H (74-99) mg/dL Calcium 9.2 (8.4-10.2) mg/dL Total Bilirubin 0.3 (0.2-1.3) mg/dL AST 20 (14-36) U/L ALT 15 (4-34) U/L Alkaline Phosphatase 91 (38-126) U/L Total Protein 6.4 (6.3-8.2) g/dL Albumin 3.7 (3.5-5.0) g/dL Urine Color Yellow Urine Appearance Clear (Clear) Urine pH 6.5 (5.0-8.0) Ur Specific [place] 1.017 (1.001-1.035) Urine Protein Negative (Negative) Urine Glucose (UA) Negative (Negative) Urine Ketones Negative (Negative) Urine Blood Negative (Negative) Urine Nitrite Negative (Negative) Urine Bilirubin Negative (Negative) Urine Urobilinogen <2.0 (<2.0) mg/dL Ur Leukocyte Esterase Negative (Negative) Disposition <Matthieu Zamudio - Last Filed: 08/05/21 07:13> Is patient prescribed a controlled substance at d/c from ED?: No Time of Disposition: 09:46 <Hunter Kovacs - Last Filed: 08/05/21 09:46> Clinical Impression: Renal colic on left side Disposition: HOME SELF-CARE Condition: Good Instructions (If sedation given, give patient instructions): Abdominal Pain in (ED), Kidney Stones (ED), Flank Pain (ED) Referrals: None,Stated [Primary Care Provider] - 1-2 days Shiloh Maloney DO [Doctor of Osteopathic Medicine] - 1-2 days Mejia Tijerina MD [STAFF PHYSICIAN] - 1-2 days
--- NOTE | 2021-08-05 08:06 | US ---
EXAMINATION TYPE: US abdomen limited DATE OF EXAM: 08/05/2021 COMPARISON: CT CLINICAL HISTORY: Possible stone. Pain, possible stone. Hx appendectomy. Patient is 21 weeks . EXAM MEASUREMENTS: Liver Length: 14.6 cm Gallbladder Wall: 0.26 cm CBD: 0.39 cm Right Kidney: 11.9 x 6.1 x 5.1 cm Limited due to gas. Pancreas: Slightly limited visibility of tail. Liver: Appears wnl. Gallbladder: Some small internal echoes are visualized within the gallbladder. Evidence for sonographic Lizarraga's sign: No CBD: Portions seen appear wnl Right Kidney: Anechoic appearance of renal pelvis. This appears to be an extrarenal pelvis. IMPRESSION: 1. Some debris or minimal stones present within the gallbladder.
--- NOTE | 2021-08-05 09:22 | US ---
EXAMINATION TYPE: US abdomen limited DATE OF EXAM: 08/05/2021 COMPARISON: US RUQ CLINICAL HISTORY: Left upper quadrant, left kidney. Pain. LUQ for left kidney per Dr. Kovacs. Pt i s 21 weeks . EXAM MEASUREMENTS: Spleen: 11.8 cm Left Kidney: 12.4 x 5.8 x 6.4 cm 1. Spleen: Appears wnl 2. Left Kidney: Appears slightly enlarged versus upper limits of normal. Appearance of anechoic hyd ronephrosis medially. Hyperechoic foci visualized. Largest appears to measure: 0.4 x 0.6 x 0.3 cm. Th polo appear to be nonobstructing renal calculi. Hydronephrosis may be related to the patient's pregnan cy status. A ureteral stone could be considered within the differential as the etiology for the hydro nephrosis. A ureteral stone is not identified by ultrasound. IMPRESSION: 1. Left hydronephrosis. Etiology is not identified by ultrasound. 2. Multiple nonobstructing left-sided renal stones.
[2021-08-05 10:01] VITALS: BP 116/67; PULSE 96; RESP 18; TEMP 98.5
== END 2021-08-05 10:01 | disposition home or self-care (01) ==
LOC: EC 03:53
DX: O99.612 Diseases of the digestive system complicating pregnancy, second trimester (principal); O99.891 Other specified diseases and conditions complicating pregnancy; N13.2 Hydronephrosis with renal and ureteral calculous obstruction; K21.9 Gastro-esophageal reflux disease without esophagitis; Z3A.21 21 weeks gestation of pregnancy; Z87.442 Personal history of urinary calculi; Z88.0 Allergy status to penicillin; Z90.49 Acquired absence of other specified parts of digestive tract; Z88.8 Allergy status to other drugs, medicaments and biological substances; Z79.899 Other long term (current) drug therapy
CPT/HCPCS: 36415; 80053; 85025; 81003; 76705; 99284; 96374; 96375; 96361; J2270; J2405

== ENCOUNTER 2021-12-09 12:29 | Outpatient (CLI) | payer BC ==
[2021-12-09 13:13] LABS: Appearance,Urine Clear (Clear); Bacteria,Urine Rare /hpf; Bilirubin,Urine Negative (Negative); Blood,Urine Large (Negative); Color,Urine Light Yellow; Glucose,Urine (UA) Negative (Negative); Ketones,Urine Negative (Negative); Leukocyte Esterase,Urine Trace (Negative); Mucus,Urine Rare /hpf; Nitrite,Urine Negative (Negative); Protein,Urine Negative (Negative); RBC,Urine 2 /hpf (0-5); Specific Gravity,Urine 1.006 (1.001-1.035); Squamous Epithelial Cell,Urine <1 /hpf (0-4); Urobilinogen,Urine <2.0 mg/dL (<2.0); WBC,Urine 1 /hpf (0-5)
[2021-12-09 13:36] LABS: Creatinine,Urine Random 35.8 mg/dL; Protein/Creatinine Ratio,Urine 0.363
[2021-12-09 14:37] LABS: Basophils % (A) 0 %; Eosinophils % (A) 0 %; HCT 33.6 % (34.0-46.0); HGB 10.5 gm/dL (11.4-16.0); Hypochromasia Slight; Lymphocytes # (A) 1.1 k/uL (1.0-4.8); Lymphocytes % (A) 15 %; MCH 25.5 pg (25.0-35.0); MCHC 31.2 g/dL (31.0-37.0); MCV 81.8 fL (80.0-100.0); Mean Platelet Volume 7.9; Monocytes # (A) 0.3 k/uL (0-1.0); Monocytes % (A) 4 %; Neutrophils % (A) 79 %; Platelet Count 218 k/uL (150-450); RBC 4.11 m/uL (3.80-5.40); RDW 15.9 % (11.5-15.5); WBC 7.5 k/uL (3.8-10.6)
[2021-12-09 14:58] LABS: ALT 12 U/L (4-34); AST 18 U/L (14-36); African American GFR (CKD) >90 (>60 ml/min/1.73 sqM); Blood Urea Nitrogen 6 mg/dL (7-17); LDH 406 U/L (313-618); Non-African American GFR(CKD) >90 (>60 ml/min/1.73 sqM); Uric Acid 4.8 mg/dL (3.7-7.4)
[2021-12-09 15:24] VITALS: BP 132/79; PULSE 110; RESP 18; TEMP 97.9
--- NOTE | 2022-02-16 13:46 | P.MSEPDOC ---
Presenting Problems - Arrival Data Date of Arrival on Unit: 12/09/21 Time of Arrival on Unit: 12:29 Mode of Transport: Ambulatory - Complaint OB-Reason for Admission/Chief Complaint: PIH Medical History - Information : 1 Para: 0 Term: 0 : 0 Abortions: Spontaneous or Elective: 0 Number of Living Children: 0 - Gestational Age Gestational Age by JORJE (wks/days): 38 Weeks and 6 Days Review of Systems - Review of Systems Constitutional: No problems Breast: No problems ENT: No problems Cardiovascular: No problems Respiratory: No problems Gastrointestinal: No problems Genitourinary: No problems Musculoskeletal: No problems Neurological: No problems Skin: No problems Vital Signs - Temperature Temperature: 97.9 F Temperature Source: Temporal Artery Scan - Pulse Pulse Oximetery Pulse Rate: 110 Pulse Assessment Method: Pulse Oximetry - Respirations Respiratory Rate: 18 Oxygen Delivery Method: Room Air O2 Sat by Pulse Oximetry: 97 - Blood Pressure Right Arm Blood Pressure: 132/79 Blood Pressure Mean: 96 Blood Pressure Source: Automatic Cuff Medical Screen Scoring - Assessment - Baby A Baseline FHR: 135 Heart Rate - NICHD Category: Category I (Normal) NST: Reactive Physician Notification - Physician Notified Physician Notified Date: 12/09/21 Physician Notified Time: 15:00 Physician: Shiloh Maloney New Order Received: Yes - Notification Comment Comment: Dr. 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 Orders to discharge pt home and return on tuesday evening for her scheduled IOL. Maternal Triage Index - Maternal Triage Index Presenting for scheduled procedure w/no complaint: Yes - Scheduled/Requesting Priority 5 Scheduled/Requesting Priority 5: Yes Criteria Met for Priority 5: Sent over from office b/c of high BPs, verbal orders from Dr. Maloney for PIH workup Disposition - Disposition OB Disposition: Discharge to home Discharge Date: 12/09/21 Discharge Time: 15:08 I agree with the RN Medical Screening Exam: Yes Case reviewed; plan agreed upon as documented in EMR&OBIX.: Yes Diagnosis: GESTATIONAL HTN W/O SIGNIFICANT PROTEINURIA, THIRD TRIMESTER
== END 2021-12-09 15:08 | disposition home or self-care (01) ==
LOC: FBPOP 12:29
PROVIDERS: ATTEND Obstetrics & Gynecology Obstetrics
DX: O13.3 Gestational [pregnancy-induced] hypertension without significant proteinuria, third trimester (principal); Z3A.38 38 weeks gestation of pregnancy; Z88.2 Allergy status to sulfonamides; Z88.0 Allergy status to penicillin; Z88.8 Allergy status to other drugs, medicaments and biological substances
CPT/HCPCS: 59025; 81001; 82565; 82570; 83615; 84156; 84450; 84460; 84520; 84550; 85025; 99215

== ENCOUNTER 2021-12-12 01:40 | Outpatient (CLI) | payer BC ==
[2021-12-12 03:14] LABS: Appearance,Urine Clear (Clear); Bacteria,Urine Rare /hpf; Bilirubin,Urine Negative (Negative); Blood,Urine Negative (Negative); Color,Urine Yellow; Glucose,Urine (UA) Negative (Negative); Ketones,Urine Negative (Negative); Leukocyte Esterase,Urine Moderate (Negative); Mucus,Urine Rare /hpf; Nitrite,Urine Negative (Negative); PH, Urine 6.5 (5.0-8.0); Protein,Urine Trace (Negative); RBC,Urine 2 /hpf (0-5); Specific Gravity,Urine 1.015 (1.001-1.035); Squamous Epithelial Cell,Urine 2 /hpf (0-4); Urobilinogen,Urine <2.0 mg/dL (<2.0); WBC,Urine 4 /hpf (0-5)
[2021-12-12 03:23] LABS: Creatinine,Urine Random 86.3 mg/dL; Protein/Creatinine Ratio,Urine 0.162
[2021-12-12 03:51] LABS: ALT 14 U/L (4-34); AST 19 U/L (14-36); African American GFR (CKD) >90 (>60 ml/min/1.73 sqM); Blood Urea Nitrogen 8 mg/dL (7-17); LDH 358 U/L (313-618); Non-African American GFR(CKD) >90 (>60 ml/min/1.73 sqM); Uric Acid 4.9 mg/dL (3.7-7.4)
[2021-12-12 04:01] LABS: Anisocytosis Slight; Basophils % (A) 0 %; Eosinophils % (A) 1 %; HCT 33.7 % (34.0-46.0); HGB 10.4 gm/dL (11.4-16.0); Hypochromasia Slight; Lymphocytes # (A) 1.2 k/uL (1.0-4.8); Lymphocytes % (A) 16 %; MCH 25.1 pg (25.0-35.0); MCHC 30.9 g/dL (31.0-37.0); MCV 81.2 fL (80.0-100.0); Monocytes # (A) 0.3 k/uL (0-1.0); Monocytes % (A) 5 %; Neutrophils # (A) 5.8 k/uL (1.3-7.7); Neutrophils % (A) 77 %; Platelet Count 207 k/uL (150-450); RBC 4.15 m/uL (3.80-5.40); WBC 7.6 k/uL (3.8-10.6)
[2021-12-12 04:52] VITALS: BP 143/98; PULSE 95; RESP 18; TEMP 97.1
--- NOTE | 2021-12-17 20:11 | P.MSEPDOC ---
Presenting Problems - Arrival Data Date of Arrival on Unit: 12/14/21 Time of Arrival on Unit: 16:30 Mode of Transport: Ambulatory - Complaint OB-Reason for Admission/Chief Complaint: PIH Comment: increased BP, nausea, and feeling unwell Medical History - Information : 1 Para: 0 Term: 0 : 0 Abortions: Spontaneous or Elective: 0 Number of Living Children: 0 - Gestational Age Gestational Age by JORJE (wks/days): 39 Weeks and 5 Days Review of Systems - Review of Systems Constitutional: No problems Breast: No problems ENT: No problems Cardiovascular: No problems Respiratory: No problems Gastrointestinal: No problems Genitourinary: No problems Musculoskeletal: No problems Neurological: No problems Skin: No problems Vital Signs - Temperature Temperature: 97.1 F Temperature Source: Temporal Artery Scan - Pulse Pulse Oximetery Pulse Rate: 95 Pulse Assessment Method: Pulse Oximetry - Respirations Respiratory Rate: 18 Oxygen Delivery Method: Room Air O2 Sat by Pulse Oximetry: 97 - Blood Pressure Right Arm Blood Pressure: 143/98 Blood Pressure Mean: 113 Blood Pressure Source: Automatic Cuff Medical Screen Scoring - Cervical Exam Dilation (cm): 0 Effacement (%): 50 Station: -2 Membranes: Intact - Assessment - Baby A Baseline FHR: 125 Heart Rate - NICHD Category: Category I (Normal) NST: Reactive Physician Notification - Physician Notified Physician Notified Date: 12/12/21 Physician Notified Time: 02:35 Physician: Guillermina Perez Order Received: Yes - Notification Comment Comment: 0235-Dr. Perez called, report given on maternal complaints of increased BP, nausea,. feeling flushed and overall unwell. Pt was seen in triage on tuesday for a PIH workup. and all was WNL then. Pt currently has 2+ LE edema, 2+ reflexes, no clonus, no LONG, no. visual changes, and BPs are 143/98, 148/88, 144/96, and 142/96. FHTs are category [address] reactive[address] Perez asking for a SVE, SVE fingertip/thick/-2. Dr. Perez also inquiring if she has had high BPs before tuesday, records show BPs have been up to 150/90 (at 33weeks). Orders to obtain PIH labs and call with lab results and repeat BPs. 0404-Dr. Perez called, reoprt given on all labs WNL, BPs consistently 130/80s, and. pt is feeling much better. Orders to discharge pt home and follow up on tuesday for her. induction. Maternal Triage Index - Maternal Triage Index Presenting for scheduled procedure w/no complaint: No - Stat/Priority 1 Stat Priority 1: No - Urgent/Priority 2 Urgent Priority 2: Yes Provider Notified: Guillermina Perez Provider Notified Time: 02:35 Criteria Met for Priority 2: 39 2/7wks, increased BPs at home, nausea, flushed, not feeling well, initial BP 143/98 Disposition - Disposition OB Disposition: Physician follow up in office, Discharge to home Discharge Date: 12/12/21 Discharge Time: 04:10 I agree with the RN Medical Screening Exam: Yes Case reviewed; plan agreed upon as documented in EMR&OBIX.: Yes Diagnosis: RELATED CONDITIONS, UNSPECIFIED, THIRD TRIMESTER
== END 2021-12-12 04:10 | disposition home or self-care (01) ==
LOC: FBPOP 01:40
PROVIDERS: ATTEND Obstetrics & Gynecology
DX: O26.893 Other specified pregnancy related conditions, third trimester (principal); R11.0 Nausea; Z3A.39 39 weeks gestation of pregnancy
CPT/HCPCS: 59025; 81001; 82565; 82570; 83615; 84156; 84450; 84460; 84520; 84550; 85025; 99215

== ENCOUNTER 2021-12-14 16:21 | Inpatient (IN) | payer BC ==
[~2021-12-14 16:21] MED LIST: CARBOPROST TROMETHAMINE 250 MCG/ML 1 ML AMP IM PRN; DINOPROSTONE 10 MG INSERT.ER VAGINAL ONE; LIDOCAINE 0.5% (PF) 5 MG/ML (50 ML SDV) SQ PRN; METHYLERGONOVINE 0.2 MG/ML 1 ML AMP IM PRN; OXYTOCIN 10 UNIT/ML 1 ML VIAL IM PRN; TERBUTALINE 1 MG/ML VIAL SQ PRN
[2021-12-14] MEDS ORDERED: BUTORPHANOL 1 MG/ML 1 ML VIAL IV PRN (17:18)
--- NOTE | 2021-12-14 17:18 | P.HPOB ---
History of Present Illness H&P Date: 12/14/21 Chief Complaint: IUP @ 39 4/7 weeks, gestational hypertension 30-year-old 1 para 0 at 39-4/7 weeks that presents to labor and delivery for induction of labor secondary to gestational hypertension. Patient denies signs and symptoms of preeclampsia. Patient has been receiving routine care with myself which has been essentially uncomplicated despite increased anxiety and questionable gestational hypertension. Patient's blood pressures at home have been consistently 130s over 80s with slight rising over the last 2 weeks of 140s over 90s. Patient has had multiple preeclampsia labs and negative workups were obtained. Today patient states she feels well, she notes good movement she denies contractions loss of fluid or vaginal bleeding. Review of Systems Constitutional: Denies chills, Denies fatigue, Denies fever Ears, nose, mouth and throat: Denies headache Cardiovascular: Reports leg edema Respiratory: Denies dyspnea Gastrointestinal: Denies nausea, Denies vomiting Genitourinary: Reports Past Medical History Past Medical History: GERD/Reflux Additional Past Medical History / Comment(s): arthritis. endometriosis, Kidney stones History of Any Multi-Drug Resistant Organisms: None Reported Past Surgical History: Appendectomy Additional Past Surgical History / Comment(s): D & C Past Anesthesia/Blood Transfusion Reactions: Postoperative Nausea & Vomiting (PONV) Smoking Status: Never smoker Medications and Allergies Home Medications Medication Instructions Recorded Confirmed Type Aspirin [Adult Low Dose Aspirin EC] 81 mg PO DAILY 12/09/21 12/12/21 History Evening [place] Oil 500 mg VAGINAL DAILY 12/09/21 12/09/21 History Iron 18 mg PO DAILY 12/09/21 12/12/21 History Vit No.179/Iron/Folic 1 each PO DAILY 12/09/21 12/12/21 History [ Tablet] buPROPion [Wellbutrin] 300 mg PO DAILY 12/09/21 12/12/21 History Allergies Allergy/AdvReac Type Severity Reaction Status Date / Time Penicillins Allergy Unknown Verified 12/14/21 17:02 sulfamethoxazole Allergy Unknown Verified 12/14/21 17:02 [From Bactrim] trimethoprim [From Bactrim] Allergy Unknown Verified 12/14/21 17:02 lorazepam [From Ativan] AdvReac Nausea Verified 12/14/21 17:02 Exam Osteopathic Statement: *. No significant issues noted on an osteopathic structural exam other than those noted in the History and Physical/Consult. 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 Cervidil is placed without difficulty. Assessment and Plan (1) Term Current Visit: Yes Status: Acute Code(s): Z34.90 - ENCNTR FOR SUPRVSN OF NORMAL , UNSP, UNSP TRIMESTER SNOMED Code(s): 16866929 (2) Gestational HTN Current Visit: Yes Status: Acute Code(s): O13.9 - GESTATIONAL HTN W/O SIGNIFICANT PROTEINURIA, UNSP TRIMESTER SNOMED Code(s): 85575005 Plan: 22-year-old 1 para 0 at 39-4/7 weeks presents for induction of labor secondary to gestational hypertension. Patient has had multiple preeclampsia lab workups which have been negative in nature. No preeclampsia labs were done on admission. Patient's blood pressures noted to be 140s over 90s. Patient denies signs or symptoms of preeclampsia. We'll proceed with Cervidil induction of labor.
[2021-12-14 17:56] LABS: Basophils % (A) 0 %; Eosinophils % (A) 0 %; HCT 33.7 % (34.0-46.0); HGB 10.6 gm/dL (11.4-16.0); Hypochromasia Slight; Lymphocytes # (A) 1.2 k/uL (1.0-4.8); Lymphocytes % (A) 15 %; MCH 25.3 pg (25.0-35.0); MCHC 31.6 g/dL (31.0-37.0); MCV 80.1 fL (80.0-100.0); Monocytes # (A) 0.3 k/uL (0-1.0); Monocytes % (A) 4 %; Neutrophils % (A) 79 %; Platelet Count 228 k/uL (150-450); RBC 4.21 m/uL (3.80-5.40); RDW 15.8 % (11.5-15.5); WBC 7.7 k/uL (3.8-10.6)
[2021-12-15] MEDS: LACTATED RINGERS 1,000 ML IV SCH ×5 (01:07→16:46)
[2021-12-15] MEDS: OXYTOCIN 30 UNITS/500 ML NS 30 UNIT in SALINE 1 500ML.BAG IV SCH ×2 (07:25→21:05)
[2021-12-15] MEDS: ONDANSETRON 4 MG/2 ML VIAL IVP PRN ×2 (08:35→16:46)
[2021-12-15] MEDS ORDERED: ROPIVACAINE 5MG/ML 20ML VIAL ONE (09:51)
[2021-12-15] MEDS ORDERED: fentaNYL (PF) 50 MCG/ML 5 ML AMP ONE (09:51)
[2021-12-15] MEDS ORDERED: SODIUM CHLORIDE 0.9% 100 ML BAG ONE (09:51)
[2021-12-15] MEDS ORDERED: miSOPROStoL 200 MCG TAB RECTAL STA (19:26)
[2021-12-15] MEDS ORDERED: diphenhydrAMINE 25 MG CAP PO PRN (19:37)
[2021-12-15] MEDS ORDERED: SIMETHICONE 80 MG CHEWABLE PO PRN (19:37)
[2021-12-15] MEDS ORDERED: BENZOCAINE/MENTHOL SPRAY 1 GM/SPRAY AEROSOL TOPICAL PRN (19:37)
[2021-12-15] MEDS ORDERED: diphenhydrAMINE 50 MG CAP PO PRN (19:37)
[2021-12-15] MEDS ORDERED: HYDROCORTISONE 2.5% RECTAL CREAM 30 GM TUBE RECTAL PRN (19:37)
[2021-12-15] MEDS ORDERED: ZOLPIDEM 5 MG TAB PO PRN (19:37)
[2021-12-15] MEDS ORDERED: diphenhydrAMINE 50 MG/ML 1 ML VIAL IVP PRN ×2 (19:37)
[2021-12-15] MEDS ORDERED: LANOLIN CREAM 5 GM TUBE TOPICAL PRN (19:37)
[2021-12-15] MEDS ORDERED: OXYTOCIN 30 UNITS/500 ML NS 30 UNIT in SALINE 1 500ML.BAG IV SCH (19:45)
--- NOTE | 2021-12-15 19:48 | P.PROBDLV ---
Vaginal Delivery Note - . Vaginal Delivery Note: This is a 30-year-old 1 para 0 at 39-4/7 weeks that presented to labor and delivery last evening for Cervidil induction of labor secondary to gestational hypertension. Patient was admitted to labor and delivery and Cervidil was placed without difficulty. Patient progressed through the night and did become uncomfortable with contractions, receiving Stadol 1. Patient had a adverse reaction to Stadol, with noted nausea and sweating. In the morning patient was noted to be 1-2/60/-2 amniotomy is performed and clear fluid was obtained. Pitocin augmentation of labor was begun. Patient did become uncomfortable and requested epidural placement. Epidural was placed without difficulty by the anesthesia department. Patient made slow progress through labor eventually progressing to complete patient was placed in the modified lithotomy position and with excellent maternal effort had a normal spontaneous vaginal delivery of a viable female infant at 1857 in an OA presentation. Infant was noted have a low irregular heart rate and was taken to the nursery at that time for evaluation. Spontaneous cry was noted at . After the umbilical cord was clamped and cut and cord blood was taken. Placenta was delivered spontaneously intact with a three-vessel cord being noted. On inspection the patient's vaginal vault bilateral labial lacerations were noted to the hymen. These were repaired in usual fashion with 4-0 chromic after instillation of lidocaine. After closure of lacerations were complete hemostasis was noted. Uterus is noted to be boggy and a large gush of blood was appreciated, Cytotec was placed rectally. After fundal massage the uterus is noted be firm. Manual extraction of a large amount of clots was once again performed. The uterus did firm and was noted to be well below the umbilicus. The bladder was drained for partially 100 mL of clear yellow urine. Bleeding had slowed and uterus is noted to be firm. Laceration sites were inspected hemostasis was appreciated once again. The cervix was inspected and found to be intact. The placenta was inspected and noted to be intact once again. All counts were noted to be correct 2. Estimated blood loss 500 mL. Patient tolerated delivery well and is resting comfortable he. Awaiting pediatric input on infant.
[2021-12-15] MEDS: SENNOSIDES-DOCUSATE SODIUM 1 EACH TAB PO SCH (20:00)
[2021-12-15] MEDS: IBUPROFEN 600 MG TAB PO SCH (20:20)
[2021-12-16] MEDS: IBUPROFEN 600 MG TAB PO SCH ×4 (05:12→23:21)
[2021-12-16 07:31] LABS: Anisocytosis Slight; Basophils % (A) 0 %; Eosinophils % (A) 0 %; HCT 24.7 % (34.0-46.0); Hypochromasia Moderate; Lymphocytes % (A) 17 %; MCH 25.6 pg (25.0-35.0); MCHC 31.5 g/dL (31.0-37.0); MCV 81.4 fL (80.0-100.0); Mean Platelet Volume 8.2; Monocytes # (A) 0.5 k/uL (0-1.0); Monocytes % (A) 4 %; Neutrophils % (A) 76 %; Platelet Count 195 k/uL (150-450); RBC 3.03 m/uL (3.80-5.40); RDW 16.4 % (11.5-15.5); WBC 11.8 k/uL (3.8-10.6)
[2021-12-16 07:36] LABS: HGB 7.8 gm/dL (11.4-16.0)
--- NOTE | 2021-12-16 08:55 | P.PNOBGVD ---
Subjective - Subjective Principal diagnosis: day 1 Interval history: Patient is doing well . She is ambulating and voiding without difficulty. Lochia is moderate. She states she feels well. remains in special care nursery on high flow oxygen Patient reports: Reports appetite normal, Reports voiding normally, Reports pain well controlled, Reports ambulating normally [place]: doing well (On high flow oxygen in special care nursery) Objective - Latest Vital Signs Latest vital signs: Vital Signs Temp Pulse Resp BP Pulse Ox 12/16/21 08:43 97.6 F 90 16 121/73 98 12/15/21 22:40 98.6 F 105 H 16 148/67 98 12/15/21 22:00 99.2 F 108 H 16 135/86 12/15/21 21:30 99.6 F 109 H 16 135/78 12/15/21 21:00 99.3 F 103 H 16 137/89 12/15/21 20:45 99.5 F 110 H 16 133/80 12/15/21 20:30 99.6 F 103 H 16 129/77 12/15/21 20:15 99.6 F 107 H 16 131/81 12/15/21 20:00 116 H 16 138/71 12/15/21 19:45 97.8 F 123 H 16 122/58 12/15/21 19:30 97.0 F L 117 H 18 135/72 Intake and Output 12/15/21 12/16/21 12/16/21 22:59 06:59 14:59 Intake Total 500.0 Output Total 1080 Balance -580.0 Intake: Intake, IV Titration 500.0 Amount Oxytocin 30 Units/500 ml 500.0 Ns 30 unit In Saline 1 500ml.bag @ Per Protocol IV .Q0M [facility] Rx#:[id number] Output: Urine 100 Estimated Blood Loss 500 Output, Quantitative 480 Blood Loss Other: # Voids 1 2 - Exam Extremities: Present: normal, edema Abdomen: Present: normal appearance, soft Uterus: Present: normal, firm - Labs Labs: Abnormal Lab Results - Last 24 Hours (Table) 12/16/21 Range/Units 07:02 WBC 11.8 H (3.8-10.6) k/uL RBC 3.03 L (3.80-5.40) m/uL Hgb 7.8 L D (11.4-16.0) gm/dL Hct 24.7 L (34.0-46.0) % RDW 16.4 H (11.5-15.5) % Neutrophils # 9.0 H (1.3-7.7) k/uL Assessment and Plan (1) Term Current Visit: Yes Status: Acute Code(s): Z34.90 - ENCNTR FOR SUPRVSN OF NORMAL , UNSP, UNSP TRIMESTER SNOMED Code(s): 21018267 (2) Gestational HTN Current Visit: Yes Status: Acute Code(s): O13.9 - GESTATIONAL HTN W/O SIGNIFICANT PROTEINURIA, UNSP TRIMESTER SNOMED Code(s): 40126041 (3) Status post normal vaginal delivery Current Visit: Yes Status: Acute Code(s): MBJ7637 - SNOMED Code(s): 206725700 (4) Obstetric labial laceration, delivered, current hospitalization Current Visit: Yes Status: Acute Code(s): O70.0 - FIRST DEGREE PERINEAL LA CERATION DURING DELIVERY SNOMED Code(s): 594645581 (5) hemorrhage Current Visit: Yes Status: Acute Code(s): O72.1 - OTHER IMMEDIATE HEMORRHAGE SNOMED Code(s): 88224711 (6) Acute blood loss anemia Current Visit: Yes Status: Acute Code(s): D62 - ACUTE POSTHEMORRHAGIC ANEMIA SNOMED Code(s): 445096885 Plan: 30-year-old G1 now P1 status post normal spontaneous vaginal delivery area patient is doing well . Infant remains in special care nursery on high flow oxygen deferred pediatrics for status update.
[2021-12-16] MEDS: SENNOSIDES-DOCUSATE SODIUM 1 EACH TAB PO SCH ×2 (08:59→19:52)
[2021-12-16] MEDS: ACETAMINOPHEN TAB 325 MG TAB PO PRN ×2 (08:59→19:53)
[2021-12-17] MEDS: ACETAMINOPHEN TAB 325 MG TAB PO PRN (08:26)
[2021-12-17] MEDS: SENNOSIDES-DOCUSATE SODIUM 1 EACH TAB PO SCH (08:26)
--- NOTE | 2021-12-17 09:20 | P.DS ---
Providers Date of admission: 12/14/21 16:21 Expected date of discharge: 12/17/21 Attending physician: Shiloh Maloney Primary care physician: Stated None - Discharge Diagnosis(es) (1) Term Current Visit: Yes Status: Acute (2) Gestational HTN Current Visit: Yes Status: Acute (3) Status post normal vaginal delivery Current Visit: Yes Status: Acute (4) Obstetric labial laceration, delivered, current hospitalization Current Visit: Yes Status: Acute (5) hemorrhage Current Visit: Yes Status: Acute (6) Acute blood loss anemia Current Visit: Yes Status: Acute Hospital Course: This is a 30-year-old 1 now para 1 presents to labor and delivery at 39- 4/7 weeks for Cervidil induction of labor secondary to gestational hypertension. Patient was admitted to labor and delivery and Cervidil was placed without difficulty. Patient did well overnight but received 1 dose of Stadol for discomfort. Patient did have an adverse reaction to Stadol and no further doses were given. In the morning patient was noted to 1-2 cm and amniotomy was performed clear fluid was obtained. Pitocin augmentation of labor was begun. Patient made slow progress through labor eventually becoming uncomfortable and requesting epidural placement. Epidural was placed without difficulty by the anesthesia department. Patient made progress to complete began pushing and had a normal spontaneous vaginal delivery of a viable female at 1857 on 12/15. was noted to be in an occiput anterior presentation. Patient was noted to have a low heart rate and was taken to the nursery for evaluation. did end up on oxygen treatment. Patient did sustain bilateral labial lacerations during delivery which was repaired in usual fashion with 4-0 chromic. Patient had a noted hemorrhage with uterine atony appreciated Cytotec was given rectally. Uterus was then firm and she did well overnight. On this day #2 she is ambulating and voiding without difficulty. She states her pain is well-controlled. She states she is feeling well and would like discharge home. does remain in the nursery and visiting hours are discussed. Patient Condition at Discharge: Good Plan - Discharge Summary New Discharge Prescriptions: No Action buPROPion [Wellbutrin] 300 mg PO DAILY Evening [place] Oil 500 mg VAGINAL DAILY Aspirin [Adult Low Dose Aspirin EC] 81 mg PO DAILY Vit No.179/Iron/Folic [ Tablet] 1 each PO DAILY Iron 18 mg PO DAILY Discharge Medication List Aspirin [Adult Low Dose Aspirin EC] 81 mg PO DAILY 12/09/21 [History] Evening [place] Oil 500 mg VAGINAL DAILY 12/09/21 [History] Iron 18 mg PO DAILY 12/09/21 [History] Vit No.179/Iron/Folic [ Tablet] 1 each PO DAILY 12/09/21 [History] buPROPion [Wellbutrin] 300 mg PO DAILY 12/09/21 [History] Follow up Appointment(s)/Referral(s): Shiloh Maloney DO [Doctor of Osteopathic Medicine] - 2 Weeks Patient Instructions/Handouts: Vaginal Delivery (DC), Vaginal Delivery (GEN) Discharge Disposition: HOME SELF-CARE
[2021-12-17 09:35] VITALS: RESP 18
[2021-12-17] MEDS: IBUPROFEN 600 MG TAB PO SCH ×3 (09:36→14:11)
[2021-12-17] MEDS: LACTATED RINGERS 1,000 ML IV SCH (09:38)
[2021-12-17 16:24] VITALS: BP 148/87; PULSE 97; TEMP 98.4
== END 2021-12-17 19:00 | disposition home or self-care (01) | DRG 806 ==
LOC: 4FBP 16:21
PROVIDERS: ADMIT Obstetrics & Gynecology Obstetrics; ATTEND Obstetrics & Gynecology Obstetrics
PROC: 10E0XZZ Delivery of Products of Conception, External Approach (ICD-10-PCS; principal; 2021-12-15)
PROC: 3E0P7VZ Introduction of Hormone into Female Reproductive, Via Natural or Artificial Opening (ICD-10-PCS; 2021-12-15)
PROC: 0HQ9XZZ Repair Perineum Skin, External Approach (ICD-10-PCS; 2021-12-15)
PROC: 10907ZC Drainage of Amniotic Fluid, Therapeutic from Products of Conception, Via Natural or Artificial Opening (ICD-10-PCS; 2021-12-15)
DX: O13.4 Gestational [pregnancy-induced] hypertension without significant proteinuria, complicating childbirth (principal); D62 Acute posthemorrhagic anemia; Z37.0 Single live birth; O99.344 Other mental disorders complicating childbirth; O72.1 Other immediate postpartum hemorrhage; O9A.22 Injury, poisoning and certain other consequences of external causes complicating childbirth; T40.495A Adverse effect of other synthetic narcotics, initial encounter; O70.0 First degree perineal laceration during delivery; F41.9 Anxiety disorder, unspecified; M19.90 Unspecified osteoarthritis, unspecified site; R11.0 Nausea; N80.9 Endometriosis, unspecified; O90.81 Anemia of the puerperium; Z3A.39 39 weeks gestation of pregnancy; Z87.442 Personal history of urinary calculi; Z79.82 Long term (current) use of aspirin; Z79.899 Other long term (current) drug therapy; Z88.0 Allergy status to penicillin; Z88.1 Allergy status to other antibiotic agents; Z88.8 Allergy status to other drugs, medicaments and biological substances
CPT/HCPCS: 85025; 86850; 86900; 86901

== ENCOUNTER → 2023-08-11 | Outpatient (CLI) | payer BC ==
--- NOTE | 2023-08-12 09:28 | US ---
EXAMINATION TYPE: US kidneys/renal and bladder DATE OF EXAM: 08/11/2023 COMPARISON: NONE CLINICAL INDICATION: Female, 32 years old with history of R30.0 DYSURIA; pain HX of stones and UTI EXAM MEASUREMENTS: Right Kidney: 10.8 x 5.6 x 5.0 cm Left Kidney: 11.4 x 5.9 x 5.0 cm Right Kidney: No hydronephrosis or masses seen Left Kidney: No hydronephrosis or masses seen Bladder: Anechoic Bilateral Jets seen: yes There is no evidence for hydronephrosis at this point in time. No nephrolithiasis is seen. No christen s are identified. The urinary bladder is anechoic. Bilateral ureteral jets are seen. IMPRESSION:. There is no solid renal mass, renal calcification or hydronephrosis. No significant abno rmality seen
== END | disposition home or self-care (01) ==
LOC: RADUSWWP 09:59
PROVIDERS: ATTEND Family Medicine
DX: R30.0 Dysuria (principal); M54.59 Other low back pain; Z87.442 Personal history of urinary calculi; Z87.440 Personal history of urinary (tract) infections
CPT/HCPCS: 76770

== ENCOUNTER → 2023-10-14 | Outpatient (CLI) | payer BC ==
--- NOTE | 2023-10-14 11:28 | MM ---
Reason for Exam: Clinical finding. Last mammogram was performed 3 year(s) and 9 month(s) ago. Indicated Problems: Skin changes to breast of the left side for 2 Month(s). Patient History: Menarche at age 16. First Full-Term at age 30. Premenopausal. Patient has history of breast feeding. 02/11/2020, Benign Core Biopsy on the right side. Maternal aunt (great) had breast cancer at or over age 50. Last menstrual period: 10/01/2023 Prior Study Comparison: 01/30/2020 Bilateral Diagnostic Mammogram, [facility]. 02/11/2020 Right Diagnostic Mammogram, [facility]. Tissue Density: The breasts are heterogeneously dense, which may obscure small masses. Findings: Analyzed By CAD. The pattern is symmetrical. No discrete abnormality at the area of concern or left breast is evident. Markers were placed. There is a mole in the inferior left breast. Additional evaluation with ultrasound is recommended. Right breast:No suspicious groups of microcalcifications, spiculated or lobular masses, architectural distortion or other secondary signs of malignancy are mammographically apparent. Overall Assessment: Incomplete: need additional imaging evaluation, BI-RAD 0 Management: Diagnostic Breast Ultrasound of the right breast. A negative mammogram report should not preclude additional follow up of suspicious palpable abnormalities. Patient should continue monthly self breast exam. A clinical breast exam by your physician is recommended on an annual basis and results should be correlated with mammographic findings. Note on Sandra scores and lifetime risk: 1. A Sandra score greater than 3% is considered moderate risk. If this is the case, consider specialist referral to assess eligibility for a risk reducing agent. 2. If overall lifetime risk for the development of breast cancer is 20% or higher, the patient may qualify for future screening with alternating mammogram and breast MRI. Electronically signed and approved by: Tejas Nelson D.O. Radiologis
--- NOTE | 2023-10-14 11:48 | USB ---
Reason for Exam: Clinical finding. Patient History: Menarche at age 16. First Full-Term at age 30. Premenopausal. Patient has history of breast feeding. 02/11/2020, Benign Core Biopsy on the right side. Maternal aunt (great) had breast cancer at or over age 50. Technique: Method: Targeted. Prior Study Comparison: 01/30/2020 Bilateral Diagnostic Mammogram, [facility]. 02/11/2020 Right Diagnostic Mammogram, [facility]. Findings: The lower outer quadrant of the left breast, the axilla of the left breast and the retroareolar of the left breast were scanned. No solid or cystic masses are identified.. No abnormality to account for dimpling. No subareolar. Overall Assessment: Negative, BI-RAD 1 Management: Screening Mammogram of both breasts at age 42. A clinical breast exam by your physician is recommended on an annual basis and results should be correlated with mammographic findings. This exam should not preclude additional follow-up of suspicious palpable abnormalities. Results were given to the patient verbally at the time of exam. Electronically signed and approved by: Tejas Nelson D.O. Radiologis
== END | disposition home or self-care (01) ==
LOC: RADMAMWWP 10:27
PROVIDERS: ATTEND Family Medicine
DX: R92.333 Mammographic heterogeneous density, bilateral breasts (principal); N64.52 Nipple discharge; N63.23 Unspecified lump in the left breast, lower outer quadrant; D24.1 Benign neoplasm of right breast; Z80.3 Family history of malignant neoplasm of breast
CPT/HCPCS: 77062; 77066

== ENCOUNTER 2024-05-30 17:24 | Observation (INO) | payer BC ==
--- NOTE | 2024-05-30 17:49 | ED ---
Chest Pain HPI - General Source: patient, RN notes reviewed Mode of arrival: ambulatory Limitations: no limitations - History of Present Illness MD Complaint: chest pain <Baetriz Tian - Last Filed: 05/30/24 17:47> <Arin Pratt - Last Filed: 05/31/24 09:32> - General Chief Complaint: Chest Pain Stated Complaint: chest pain L arm weakness Time Seen by Provider: 05/30/24 17:40 - History of Present Illness Initial Comments: Quick Note: This is a 33-year-old female who presents to the emergency department for chest pain. States that it started 2 days ago. This has since started to improve to some extent, however this morning around 9 AM she noticed that her left arm seemed weaker and she was having difficulty using it. Denies any history of similar symptoms in the past. Denies any personal or family history of cardiac issues. (Beatriz Tian) Patient is a previously well 33-year-old female remote history of hypertension previously on metoprolol presenting today for left-sided chest pain and left upper extremity weakness. Pain began about 2 to 3 days ago was described as pressure-like in the left side of her chest. Yesterday took ibuprofen and Tylenol without relief of pain though does state it is improving spontaneously today. This morning patient noted feeling like her left arm was weak and she was having difficulty gripping things. She denies additional focal numbness or weakness, headache, slurred speech, changes in vision. No history prior CVA or CAD. No first-degree relatives with prior history of CVA or CAD. Notes associated "feeling winded" when walking to the CT scan earlier. Denies history PE. Is not currently on any type of control or estrogen replacement therapy non-smoker, no recent travel surgery or hospitalizations, no history of cancer, no hemoptysis, no fevers, no lower extremity swelling, non-smoker. (Arin Pratt) - Related Data Home Medications Medication Instructions Recorded Confirmed ARIPiprazole [Abilify] 5 mg PO HS 05/30/24 05/30/24 Semaglutide [Wegovy] 1 mg SQ WE 05/30/24 05/30/24 buPROPion XL [Wellbutrin XL] 300 mg PO HS 05/30/24 05/30/24 Allergies Allergy/AdvReac Type Severity Reaction Status Date / Time Penicillins Allergy Unknown Verified 05/30/24 20:59 Childhood sulfamethoxazole Allergy Unknown Verified 05/30/24 20:59 [From Bactrim] Childhood trimethoprim [From Bactrim] Allergy Unknown Verified 05/30/24 20:59 Childhood lorazepam [From Ativan] AdvReac Nausea Verified 05/30/24 20:59 Review of Systems ROS Other: All systems not noted in ROS Statement are negative. <Beatriz Tian - Last Filed: 05/30/24 17:47> ROS Other: All systems not noted in ROS Statement are negative. <Arin Pratt - Last Filed: 05/31/24 09:32> ROS Statement: Those systems with pertinent positive or pertinent negative responses have been documented in the HPI. EKG Findings - EKG Comments: EKG Findings:: Sinus tachycardia, rate 124 bpm MO interval 141 ms QT/QTc 3 7/444 ms, normal axis, no ST elevations or depressions, no arrhythmia <Arin Pratt - Last Filed: 05/31/24 09:32> Past Medical History Past Medical History: GERD/Reflux Additional Past Medical History / Comment(s): arthritis. endometriosis, Kidney stones History of Any Multi-Drug Resistant Organisms: None Reported Past Surgical History: Appendectomy Additional Past Surgical History / Comment(s): D & C Past Anesthesia/Blood Transfusion Reactions: Postoperative Nausea & Vomiting (PONV) Past Psychological History: Anxiety, Depression Smoking Status: Never smoker Past Alcohol Use History: Rare Past Drug Use History: None Reported - Past Family History Father Family Medical History: No Reported History <Beatriz Tian - Last Filed: 05/30/24 17:47> General Exam Limitations: no limitations <Beatriz Tian - Last Filed: 05/30/24 17:47> <Arin Pratt - Last Filed: 05/31/24 09:32> - General Exam Comments Initial Comments: Visual Physical Exam Vital signs reviewed General: Well-appearing, nontoxic, no acute distress. Head: Normocephalic, atraumatic Eyes: PERRLA, EOMI ENT: Airway patent Chest: Nonlabored breathing Skin: No visual rash, normal skin tone Neuro: Alert and oriented 3 Musculoskeletal: No gross abnormalities (Beatriz Tian) PE: CONSTITUTIONAL: No apparent distress, well appearing SKIN: Warm, dry, no jaundice, hives or petechiae EYES: Pupils are equally round, extraocular movements intact without nystagmus, clear conjunctiva, non-icteric sclera HENT: Normocephalic, atraumatic, moist mucus membranes, oropharynx clear without exudates NECK: , Full range of motion, normal appearance PULMONARY: Clear to auscultation without wheezes, rhonchi, or rales, normal excursion, no accessory muscle use and no stridor CARDIOVASCULAR: Regular rate, rhythm, normal S1 and S2. No appreciated murmurs, rubs or gallops. Strong radial pulses with intact distal perfusion. No lower extremity edema GASTROINTESTINAL: Soft, active bowel sounds throughout, non-tender, non- distended, no palpable masses, no rebound or guarding. No hepatosplenomegaly GENITOURINARY: MUSCULOSKELETAL: Extremities have no gross deformity, no edema, redness, or swelling. No calf swelling NEUROLOGIC:_a/o x 3, GCS 15, normal mentation and speech. Cranial nerves: II (visual shankar without defects), III, IV and (extraocular movements are intact, pupils are equal with normal reaction to light), V (intact facial sensation and jaw opening), VII (no facial droop), IX and X (normal palate movement, midline uvula, normal voice), XI (symmetrical shoulder shrug and lateral head rotation against resistance), XII (midline tongue protrusion). 4/5 strength left upper extremity. No abnormal movements. Normal muscle tone. 5/5 strength in RUE, LLE, RLE. Sensation to light touch is intact bilaterally. No cerebellar signs (sdhrty-zh-[id number], hfbh-ri-tkon, and rapid alternating movements are normal) PSYCHIATRIC:_normal mood and affect, thought process is clear and linear (Arin Pratt) Course Vital Signs 05/30/24 05/30/24 05/31/24 17:41 21:53 01:00 Temperature 97.4 F L Pulse Rate 125 H 98 73 Respiratory 18 19 18 Rate Blood Pressure 164/108 137/83 121/71 O2 Sat by Pulse 98 97 98 Oximetry 05/31/24 05/31/24 02:00 04:00 Temperature Pulse Rate 71 75 Respiratory 18 18 Rate Blood Pressure 124/82 124/86 O2 Sat by Pulse 98 98 Oximetry Chest Pain MDM <Vogley,Beatriz - Last Filed: 05/30/24 17:47> <Arin Pratt - Last Filed: 05/31/24 09:32> - [facility] I performed the QuickNote portion of this chart. Signed Beatriz Tian PA-C. (Beatriz Tian) Was pt. sent in by a medical professional or institution (, TO, CENTER REP, urgent care, hospital, or half-way...) When possible be specific @ -No Did you speak to anyone other than the patient for history (EMS, parent, family, police, friend...)? What history was obtained from this source @ -No Did you review nursing and triage notes (agree or disagree)? Why? @ -I reviewed nursing and triage notes Differential Diagnosis (chest pain, altered mental status, abdominal pain women, abdominal pain men, vaginal bleeding, weakness, fever, dyspnea, syncope, headache, dizziness, GI bleed, back pain, seizure, CVA, palpatations, mental health, musculoskeletal)? @Differential CVA Ischemic stroke, hemorrhagic stroke, brain tumor, atypical migraine, Wernicke's encephalopathy, seizure, multiple sclerosis, meningitis, encephalitis, hypoglycemia, Guillain-Elliott, electrolytes disturbance, myasthenia gravis.... This is not meant to be an all-inclusive list EKG interpreted by me (3pts min.). @ -As above X-rays interpreted by me (1pt min.). @Personally reviewed chest x-ray see no evidence of cardiomegaly or consolidations I agree with radiologist interpretation CT interpreted by me (1pt min.). @ -I personally reviewed CT brain and CTA, and CT brain I see no evidence of hemorrhage or mass effect, on CT angiogram I see no evidence of large vessel occlusion or dissection U/S interpreted by me (1pt. min.). @ -None done What testing was considered but not performed or refused? (CT, X-rays, U/S, labs)? Why? @ -None What meds were considered but not given or refused? Why? @ -None Did you discuss the management of the patient with other professionals (professionals i.e. , TO, CENTER REP, lab, RT, psych nurse, social services manager, child day care provider, teacher, information management officer, counter caser)? Give summary @ -No Was smoking cessation discussed for >3mins.? @ -No Was critical care preformed (if so, how long)? @ -No Were there social determinants of health that impacted care today? How? (Homelessness, low income, unemployed, alcoholism, drug addiction, transportation, low edu. Level, literacy, decrease access to med. care, fdc, rehab)? @ -No Was there de-escalation of care discussed even if they declined (Discuss DNR or withdrawal of care, Hospice)? @ -No What co-morbidities impacted this encounter? (DM, HTN, Smoking, COPD, CAD, Cancer, CVA, ARF, Chemo, Hep., AIDS, mental health diagnosis, sleep apnea, morbid obesity)? @HTN Was patient admitted / discharged? Hospital course, mention meds given and route, prescriptions, significant lab abnormalities, going to OR and other pertinent info. @ -Admission 33-year-old female remote history hypertension, was previously on metoprolol though no longer taking as states that blood pressure is now managed with diet and weight loss. Presenting today for 2 days left-sided chest pressure and left upper extremity weakness that began at 9 AM this morning. Patient has an NIH of 0 though does have slightly decreased strength in LUE compared to RUE but no drift. Last known well was greater than 4.5 hours prior to assessment here in the ER and she is not tNK candidate. Therefore stroke alert was not called. Reviewed imaging and labs ordered by triage CELINA. CT brain shows no acute process. Due to LUE weakness, CTA added, though I suspect pt will likely require MRI. Of top concern for pt's symptoms, is MS vs CVA vs cervical radiculopathy (though of note pt denies any neck pain). Patient was noted to be tachycardic and w/ chest pain, d dimer added and was wnl. CTA negative for acute process. Updated pt to findings and my recommendations for admission for observation due to new weakness of unknown etiology in LUE. Pt agreeable with plan. Case discussed with Dr. Colunga, kindly accepts patient for admission. Undiagnosed new problem with uncertain prognosis? @ -No Drug Therapy requiring intensive monitoring for toxicity (Heparin, Nitro, Insulin, Cardizem)? @ -No Were any procedures done? @ -No Diagnosis/symptom? LUE weakness Acute, or Chronic, or Acute on Chronic? @ acute Uncomplicated (without systemic symptoms) or Complicated (systemic symptoms)? @complicated Side effects of treatment? @ -No Exacerbation, Progression, or Severe Exacerbation? @ -No Poses a threat to life or bodily function? How? (Chest pain, [place], [place], pneumonia, PE, COPD, DKA, ARF, appy, cholecystitis, CVA, Diverticulitis, Homicidal, Suicidal, threat to staff... and all critical care pts) @ potentially (Arin Pratt) Disposition <Beatriz Tian - Last Filed: 05/30/24 17:47> <Arin Pratt - Last Filed: 05/31/24 09:32> Clinical Impression: Left arm weakness, Chest pain Disposition: ADMITTED IP TO THIS [facility] Condition: Stable
--- NOTE | 2024-05-30 18:43 | XR ---
EXAMINATION TYPE: XR chest 2V DATE OF EXAM: 05/30/2024 6:25 PM COMPARISON: Chest x-ray August 23, 2018 CLINICAL INDICATION: Female, 33 years old with history of Chest Pain, TECHNIQUE: Frontal and lateral views of the chest are obtained. FINDINGS: There is no suspicious focal air space opacity, pleural effusion, or pneumothorax seen. T he cardiac silhouette size is stable and within normal limits. The osseous structures are intact. IMPRESSION: No acute process. No significant change from prior. [facility], , 05/30/2024 6:40 PM
[2024-05-30 19:42] LABS: Basophils % (A) 0 %; Eosinophils # (A) 0.1 k/uL (0-0.7); Eosinophils % (A) 1 %; HCT 43.8 % (34.0-46.0); HGB 13.8 gm/dL (11.4-16.0); Lymphocytes # (A) 1.5 k/uL (1.0-4.8); Lymphocytes % (A) 14 %; MCH 25.6 pg (25.0-35.0); MCHC 31.5 g/dL (31.0-37.0); MCV 81.4 fL (80.0-100.0); Mean Platelet Volume 7.8; Monocytes # (A) 0.4 k/uL (0-1.0); Monocytes % (A) 4 %; Neutrophils # (A) 8.2 k/uL (1.3-7.7); Neutrophils % (A) 80 %; Platelet Count 332 k/uL (150-450); RBC 5.38 m/uL (3.80-5.40); RDW 14.5 % (11.5-15.5); WBC 10.3 k/uL (3.8-10.6)
[2024-05-30 19:56] LABS: ALT 25 U/L (4-34); African American GFR (CKD) >90 (>60 ml/min/1.73 sqM); Albumin 5.1 g/dL (3.5-5.0); Anion Gap 13 mmol/L; Blood Urea Nitrogen 8 mg/dL (7-17); Calcium 10.2 mg/dL (8.4-10.2); Carbon Dioxide 22 mmol/L (22-30); Chloride 103 mmol/L (98-107); Glucose 91 mg/dL (74-99); Non-African American GFR(CKD) >90 (>60 ml/min/1.73 sqM); Sodium 138 mmol/L (137-145); Total Bilirubin 0.8 mg/dL (0.2-1.3); Total Protein 7.8 g/dL (6.3-8.2)
[2024-05-30 19:59] LABS: Prothrombin Time 11.2 sec (10.0-12.5)
--- NOTE | 2024-05-30 19:59 | CT ---
EXAMINATION TYPE: CT brain wo con DATE OF EXAM: 05/30/2024 COMPARISON: None. CLINICAL INDICATION: Female, 33 years old with history of Left arm weakness; PH, patient report ches t pain starting on Tuesday and now developed weakness in left arm. TECHNIQUE: CT of the brain performed without contrast with sagittal and coronal reformats. CT DLP: 999.8 mGycm Automated exposure control for dose reduction was used. FINDINGS: There is no acute intracranial hemorrhage, mass effect, or midline shift identified. The ventricles and sulci are within normal limits in size. Morfin-white matter differentiation is preserved. The globe s are intact and the visualized sinuses are clear. IMPRESSION: No acute intracranial hemorrhage or midline shift is seen. Consider MRI follow-up if symptoms persist . [facility], , 05/30/2024 7:57 PM
[2024-05-30 20:01] LABS: AST 29 U/L (14-36); Alkaline Phosphatase 67 U/L (38-126); Magnesium 1.9 mg/dL (1.6-2.3); Potassium 4.6 mmol/L (3.5-5.1)
[2024-05-30] MEDS: ACETAMINOPHEN TAB 500 MG TAB PO STA (21:05)
[2024-05-30] MEDS: ASPIRIN 81 MG PO STA (21:06)
[2024-05-30] MEDS: SODIUM CHLORIDE 0.9% 1,000 ML IV ONE (21:08)
--- NOTE | 2024-05-30 22:19 | CT ---
EXAMINATION TYPE: CT angio head neck DATE OF EXAM: 05/30/2024 COMPARISON: None. CLINICAL INDICATION: Female, 33 years old with history of LUE weakness, chest pain; PHH, LUE weakness , chest pain TECHNIQUE: CTA scan of the head and neck is performed with IV Contrast, patient injected with 65ml m L of Isovue 370, axial images are obtained, coronal and sagittal reformatted images are reviewed. 3D reconstructed images are created on an independent workstation and reviewed. CT DLP: 592.3 mGycm Automated exposure control for dose reduction was used. NASCET criteria was used in interpretation of this exam? FINDINGS: Right Carotid System: The common carotid artery and external carotid artery are patent. The carotid bifurcation demonstrate s no evidence of hemodynamically significant stenosis. The remaining portions of the internal carotid artery demonstrate normal size without significant narrowing. Left Carotid System: The common carotid artery and external carotid artery are patent. The carotid bifurcation demonstrate s no evidence of hemodynamically significant stenosis. The remaining portions of the internal carotid artery demonstrate normal size without significant narrowing. Vertebral arteries are patent without evidence hemodynamically significant stenosis. Codominant verte bral arteries are seen. Patent bilateral posterior communicating arteries are seen. Patent small paramjit naz anterior communicating artery. No large vessel occlusion or aneurysm at the level of the levelock o f [place]. There is a three-vessel aortic arch. The origins of the great vessels are patent. No evidence of hemo dynamically significant stenosis. Other: None. IMPRESSION: 1. No significant vascular abnormality is seen. 05/30/2024 10:16 PM,05/30/2024 10:07 PM,Vladislav [facility],CT angio head neck,[id number], [facility], , 05/30/2024 10:17 PM
[2024-05-30] MEDS: ASPIRIN 325 MG TAB PO STA (23:35)
--- NOTE | 2024-05-31 02:51 | P.HPIM ---
History of Present Illness H&P Date: 05/30/24 Patient is a 33-year-old female with no significant past medical history presenting to the emergency department with left upper extremity weakness for 1 day. 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 The weakness lasted roughly 12 hours intermittently and resolved at the time of interview. She denies slurred speech, vision changes, headaches, facial drooping, gait abnormalities, urinary complaints. Denied any prior history of unilateral weakness and also denied neck pain or trauma. She also states that on Tuesday night she had sudden onset constant chest pressure that worsened on Tuesday but was resolved this morning. She states that the chest pain was throughout her whole chest but throughout the day Tuesday began radiating to her left as well as her back. She reports diaphoresis for the last 3 days, dyspnea with exertion, dizziness, tachycardia, and pleuritic chest pain. Chest pressure worsened with coughing. She tried Tylenol and ibuprofen with no relief. Change in position did not change the chest pressure. She denied peripheral edema, recent travel or immobilization, OCP use or hormone replacement therapy. She denies history of DVT/PE. She denies personal or family cardiac history. Of note she states that she was advised stopping her metoprolol for hypertension/palpitations this past by her PCP. At the time of interview all of her symptoms seem to have resolved. Initial vitals: BP 160/108, MI 125 bpm, 97.4 F, 98% on room air Initial labs: WBC 10.3, hemoglobin 13.8, platelets 332, D-dimer 0.23, sodium 138, potassium 4.6hemolyzed, chloride 103, BUN 8, creatinine 0.63, troponin x 2: <0.012 EKG: Sinus tachycardia with ventricular rate 124 bpm, no ST segment changes, QTc 444 ms Chest x-ray: No acute process, no significant change from prior Brain CT: No acute intracranial hemorrhage or midline shift is seen CT angio head/neck: No significant vascular abnormality seen ED documentation reviewed. Given aspirin 324 mg p.o. x 1, Tylenol 1000 mg p.o. x 1, 0.9% saline 1 L bolus x 1 Review of systems: Pertinent positives and negatives as discussed in HPI, a complete review of systems was performed and all other systems are negative. Social history: Tobacco: Never smoker Alcohol: Rare Recreational drugs: None reported Travel: None reported Sick contacts: None reported Physical examination: Vital signs reviewed General: Nontoxic, no distress, appears stated age, well-appearing, obese Derm: Warm, dry, intact, no cyanosis Head: Atraumatic, normocephalic, symmetric Eyes: EOMI, anicteric sclera, PERRL Ears: Normal appearing, no external lesions, hearing intact Nose: Normal appearing, no external lesions Mouth: No lip lesion, mucus membranes moist, no tonsilar hypertrophy or exudate Neck: Supple, without lesions, trachea midline Cardiovascular: S1-S2 regular, no murmur, no pedal edema Lungs: CTA bilateral, no wheezes, no rhonchi, no rales, no accessory muscle use Abdominal: Soft, non-tender to palpation, bowel sounds present Extremities: Muscle strength 5/5 in all extremities, radial pulses 2+ bilateral, posterior tibial pulses 2+ bilateral Neuro: Alert, oriented x 4, gross neurological examination did not reveal any focal deficits. Cranial nerves II to XII grossly intact. Psych: Appropriate affect and mood Assessment and Plan: Patient is a 33-year-old female with no significant past medical history admitte d for left upper extremity weakness. Active #. Left upper extremity weakness, resolved Brain CT: No acute intracranial hemorrhage or midline shift is seen CT angio head/neck: No significant vascular abnormality seen Neurology consulted PT/OT consulted #. Atypical chest pain, rule out ACS #. Tachycardia Troponin x 2 < 0.012 D-dimer 0.23 EKG: Sinus tachycardia with ventricular rate 124 bpm,ST segment changes, QTc 444 ms Monitor vital signs Continue telemetry monitoring Obtain 2D echo Obtain TSH and free T4 Chronic #. Obesity, BMI 33.7 On Wegovy #. Depression #. Anxiety Wellbutrin Abilify DVT prophylaxis: Lovenox 40 mg subcutaneous daily The patient is admitted with an anticipated less than 2 midnight stay for evaluation of left upper extremity weakness. CODE STATUS: Full code Anticipated discharge place: Home Past Medical History Past Medical History: GERD/Reflux Additional Past Medical History / Comment(s): arthritis. endometriosis, Kidney stones History of Any Multi-Drug Resistant Organisms: None Reported Past Surgical History: Appendectomy Additional Past Surgical History / Comment(s): D & C Past Anesthesia/Blood Transfusion Reactions: Postoperative Nausea & Vomiting (PONV) Past Psychological History: Anxiety, Depression Smoking Status: Never smoker Past Alcohol Use History: Rare Past Drug Use History: None Reported - Past Family History Father Family Medical History: No Reported History Medications and Allergies Home Medications Medication Instructions Recorded Confirmed Type ARIPiprazole [Abilify] 5 mg PO HS 05/30/24 05/30/24 History Semaglutide [Wegovy] 1 mg SQ WE 05/30/24 05/30/24 History buPROPion XL [Wellbutrin XL] 300 mg PO HS 05/30/24 05/30/24 History Allergies Allergy/AdvReac Type Severity Reaction Status Date / Time Penicillins Allergy Unknown Verified 05/30/24 20:59 Childhood sulfamethoxazole Allergy Unknown Verified 05/30/24 20:59 [From Bactrim] Childhood trimethoprim [From Bactrim] Allergy Unknown Verified 05/30/24 20:59 Childhood lorazepam [From Ativan] AdvReac Nausea Verified 05/30/24 20:59 Physical Exam Vitals: Vital Signs Temp Pulse Resp BP Pulse Ox 05/30/24 21:53 98 19 137/83 97 05/30/24 17:41 97.4 F L 125 H 18 164/108 98 Intake and Output 05/30/24 05/30/24 05/31/24 14:59 22:59 06:59 Other: Weight 83.461 kg Results CBC & Chem 7: 05/30/24 19:28 05/30/24 19:28 Labs: Abnormal Lab Results - Last 24 Hours (Table) 05/30/24 05/30/24 Range/Units 19:28 19:28 Neutrophils # 8.2 H (1.3-7.7) k/uL Albumin 5.1 H (3.5-5.0) g/dL
[2024-05-31] MEDS ORDERED: ACETAMINOPHEN TAB 325 MG TAB PO PRN (04:00)
[2024-05-31 07:46] LABS: Basophils % (A) 0 %; Eosinophils # (A) 0.1 k/uL (0-0.7); Eosinophils % (A) 2 %; HCT 40.3 % (34.0-46.0); HGB 12.7 gm/dL (11.4-16.0); Lymphocytes # (A) 2.2 k/uL (1.0-4.8); Lymphocytes % (A) 36 %; MCHC 31.4 g/dL (31.0-37.0); MCV 82.6 fL (80.0-100.0); Mean Platelet Volume 7.5; Monocytes # (A) 0.4 k/uL (0-1.0); Monocytes % (A) 6 %; Neutrophils # (A) 3.2 k/uL (1.3-7.7); Neutrophils % (A) 54 %; Platelet Count 279 k/uL (150-450); RBC 4.89 m/uL (3.80-5.40); RDW 14.8 % (11.5-15.5); WBC 5.9 k/uL (3.8-10.6)
[2024-05-31 07:47] LABS: African American GFR (CKD) >90 (>60 ml/min/1.73 sqM); Anion Gap 9 mmol/L; Blood Urea Nitrogen 6 mg/dL (7-17); Calcium 9.6 mg/dL (8.4-10.2); Carbon Dioxide 27 mmol/L (22-30); Chloride 104 mmol/L (98-107); Glucose 77 mg/dL (74-99); Non-African American GFR(CKD) >90 (>60 ml/min/1.73 sqM); Potassium 3.8 mmol/L (3.5-5.1); Sodium 140 mmol/L (137-145)
[2024-05-31] MEDS ORDERED: ASPIRIN 325 MG TAB PO SCH (09:00)
[2024-05-31] MEDS: ASPIRIN 81 MG PO SCH (09:37)
[2024-05-31] MEDS: FAMOTIDINE 20 MG TAB PO SCH (09:37)
[2024-05-31] MEDS: ENOXAPARIN 40 MG/0.4 ML SYRINGE SQ SCH (09:38)
[2024-05-31 11:33] LABS: Chol/HDL Ratio 4.55 Ratio; LDL Cholesterol,Calculated 134.2 mg/dL (0.0-131.0)
[2024-05-31] MEDS: ONDANSETRON 4 MG/2 ML VIAL IVP PRN (11:41)
--- NOTE | 2024-05-31 15:28 | MR ---
EXAMINATION TYPE: MR brain/cspine wo/w DATE OF EXAM: 05/31/2024 2:52 PM COMPARISON: 05/30/2024. CLINICAL INDICATION: Female, 33 years old with history of TIA vs MS; PHH, Chest pressure, Left Arm We akness, TIA vs MS TECHNIQUE: Multi planar, multi sequence imaging was performed through the brain including: T1, T2, Inversion rec overy, Diffusion weighted imaging, and gradient echo imaging. No gadolinium was given. Multi planar, multi sequence imaging was performed utilizing: T1-weighted, T2-weighted, and turbo inv ersion recovery imaging of the cervical spine. IV Contrast: 8 mL Gadobutrol FINDINGS: The grullon-white junctions, ventricular system, basal cisterns appear unremarkable. Left parietal dev elopmental venous anomaly. Midline structures show no abnormality. Diffusion-weighted imaging shows n o evidence of restricted diffusion. The susceptibility weighted images do not reveal any evidence for micro-hemorrhage. The bone marrow signal is within normal limits. Paranasal sinuses and mastoid air cells: No significant paranasal sinus disease. Visualized orbits: Orbital contents are intact. Alignment: The cervical vertebral bodies have preserved heights. Alignment is within normal limits gi don patient positioning. Bones: Bone signal is within normal limits. No abnormal bone marrow edema on inversion recovery seque nces. Cord: The spinal cord is unremarkable with regards to their signal intensity and morphology. Discs: Intervertebral disc signal is maintained. C2-C3: No significant disc pathology. The spinal canal is patent. No neural foraminal stenosis. C3-C4: No significant disc pathology. The spinal canal is patent. No neural foraminal stenosis. C4-C5: No significant disc pathology. The spinal canal is patent. No neural foraminal stenosis. C5-C6: No significant disc pathology. The spinal canal is patent. No neural foraminal stenosis. C6-C7: No significant disc pathology. The spinal canal is patent. No neural foraminal stenosis. C7-T1: No significant disc pathology. The spinal canal is patent. No neural foraminal stenosis. Other: None. IMPRESSION: 1. No evidence for disc herniation or significant spinal canal stenosis. 2. No evidence of intracranial mass or acute/subacute infarct. 3. 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
--- NOTE | 2024-05-31 16:12 | P.CNNES ---
History of Present Illness Consult date: 05/31/24 Requesting physician: Arin Pratt Reason for Consult: left arm weakness History of Present Illness: This is a 33-year-old woman who presents the emergency department because of chest pain and left arm weakness. She stated that her chest pain began Tuesday night that continued on and then yesterday she noticed her left arm was weak and involve the entire left arm. She stated that it lasted for close to 24 hours the left arm weakness. She denies any visual disturbance. Denies any nausea vomiting any weakness or numbness anywhere else. Denies any history of stroke or TIA. She feels back to baseline. She denies any history of stroke or TIAs in the past. She denies being on any antiplatelet. She states that she has underlying history of heart racing intermittently and she had cardiac monitoring which was unremarkable. She had history of hypertension she is to be on medication metoprolol that was discontinued recently since her blood pressure is controlled. She has underlying history of depression as well as GERD. She is on Wellbutrin and Abilify. Denies any illicit drug use. No one has any strokes below 50s years old that she knows of any family history. Family history of multiple sclerosis that she is aware of. Some of the workup during this hospital visit consisted of: TSH is 4.41 Lipid panel is triglyceride 109, cholesterol 200, LDL is 134 and HDL is 44 I reviewed the rest of the lab workup. The sodium, calcium, magnesium, AST ALT BUN/creatinine are within normal limits. Serum glucose is within normal limits. Troponin is unremarkable. CT of the head is reported as no acute intracranial hemorrhage or midline shift is seen. I reviewed the CT of the head and agree with the report. CT angiography of the head and neck is reported as no significant vascular abnormality is seen. Review of Systems As per HPI. Past Medical History Past Medical History: GERD/Reflux Additional Past Medical History / Comment(s): arthritis. endometriosis, Kidney stones History of Any Multi-Drug Resistant Organisms: None Reported Past Surgical History: Appendectomy Additional Past Surgical History / Comment(s): D & C Past Anesthesia/Blood Transfusion Reactions: Postoperative Nausea & Vomiting (P ONV) Past Psychological History: Anxiety, Depression Smoking Status: Never smoker Past Alcohol Use History: Rare Past Drug Use History: None Reported - Past Family History Father Family Medical History: No Reported History Medications and Allergies Home Medications Medication Instructions Recorded Confirmed Type ARIPiprazole [Abilify] 5 mg PO HS 05/30/24 05/30/24 History Semaglutide [Wegovy] 1 mg SQ WE 05/30/24 05/30/24 History buPROPion XL [Wellbutrin XL] 300 mg PO HS 05/30/24 05/30/24 History Allergies Allergy/AdvReac Type Severity Reaction Status Date / Time Penicillins Allergy Unknown Verified 05/30/24 20:59 Childhood sulfamethoxazole Allergy Unknown Verified 05/30/24 20:59 [From Bactrim] Childhood trimethoprim [From Bactrim] Allergy Unknown Verified 05/30/24 20:59 Childhood lorazepam [From Ativan] AdvReac Nausea Verified 05/30/24 20:59 Physical Examination - Vital Signs Vital Signs: Vital Signs Temp Pulse Resp BP Pulse Ox 05/31/24 09:36 98.6 F 94 18 127/90 97 05/31/24 08:26 89 18 05/31/24 04:00 75 18 124/86 98 05/31/24 02:00 71 18 124/82 98 05/31/24 01:00 73 18 121/71 98 05/30/24 21:53 98 19 137/83 97 05/30/24 17:41 97.4 F L 125 H 18 164/108 98 GENERAL: The patient is lying in bed and is not in acute distress. NEUROLOGICAL: Higher mental function: The patient is awake, alert, oriented to self, place and time. Patient is following commands. No aphasia and no neglect. Cranial nerves: The pupils are round, equal and reactive to light and accommodation. Light reflex seems suspicious for +ve APD bilaterally. Visual shankar are full to confrontation throughout. Extraocular movement is intact no nystagmus is noted. Facial sensation is normal to touch throughout. The facial strength is normal throughout. Hearing is normal bilaterally to hand rub. Tongue is midline and moved [id number] without any difficulty. No dysarthria is noted. Shoulder shrug is normal bilaterally. Motor: The strength is 5 over 5 throughout. Normal tone and bulk. Cerebellum: Normal finger to nose heel to hunter bilaterally. Sensation: Sensation is normal to touch throughout. Reflexes (right/left): 2+ throughout. Plantars are downgoing bilaterally. Results - Laboratory Findings CBC and BMP: 05/31/24 05:58 05/31/24 05:58 Abnormal Lab Findings: Abnormal Labs 05/30/24 05/30/24 05/30/24 19:28 19:28 19:28 Neutrophils # 8.2 H BUN Albumin 5.1 H LDL Cholesterol, Calc 134.2 H 05/31/24 05:58 Neutrophils # BUN 6 L Albumin LDL Cholesterol, Calc Assessment and Plan Assessment: This is a 33-year-old woman who presents emergency department because of chest pain and left upper extremity weakness. Chest pain began 1 day and it continued and yesterday she noticed left arm weakness. Her left arm weakness lasted for about 24 hours according the patient. Acute left arm weakness unknown exact etiology rule out TIA versus multiple sclerosis because of her young age, sex, location and on examination has possible +ve APD bilaterally. Acute chest pain History of hypertension that is controlled without any medication her metoprolol was recently Underlying history of depression GERD Plan: I ordered MRI of the brain and cervical spine I ordered lab there are mimickers for multiple sclerosis: Lyme, vitamin B12, syphilis, HIV, HT LV, ESR, FUAD, ANCA Patient is currently on aspirin 81 mg daily and she was given aspirin loading dose 325 in the ED. I will not place the patient on dual antiplatelet until we get the workup I started the patient on Lipitor 20 mg nightly for secondary stroke prophylaxis Continue neurochecks Cardiac monitoring Recommend a loop recorder and that can be considered as an outpatient. She had a cardiac monitoring in the past which was unremarkable 2D echo is ordered. It seems that it was completed and pending result PT OT and BURIAL NEEDS SALESPERSON are consulted For DVT prophylaxis the patient is on Lovenox Will defer the rest of the medical management to primary and other specialist Upon discharge recommend the patient to follow-up with a neurologist as an outpatient within 2-3 weeks. The plan is discussed with patient, her who is at bedside and primary attending. Thank you for the consultation. Time with Patient: Greater than 30
--- NOTE | 2024-05-31 16:50 | P.DS ---
Providers Date of admission: 05/30/24 23:01 Expected date of discharge: 05/31/24 Attending physician: William Colunga MD Consults: 05/30/24 22:59 Consult Physician Routine Consulting Provider: Florencio Gamboa Consult Reason/Comments: Left arm weakness Do you want consulting provider notified?: Yes, Notify in am [facility] Course: Hospital Course: Patient is a 33-year-old female with no significant past medical history presenting to the emergency department with left upper extremity weakness for 1 day. She began having left upper extremity weakness this morning with decreased gambling counsellor strength and slight tingling in her fingers. The weakness lasted roughly 12 hours intermittently and resolved at the time of interview. She denies slurred speech, vision changes, headaches, facial drooping, gait abnormalities, urinary complaints. Denied any prior history of unilateral weakness and also denied neck pain or trauma. She also states that on Tuesday night she had sudden onset constant chest pressure that worsened on Tuesday but was resolved this morning. She states that the chest pain was throughout her whole chest but throughout the day Tuesday began radiating to her left as well as her back. She reports diaphoresis for the last 3 days, dyspnea with exertion, dizziness, tachycardia, and pleuritic chest pain. Chest pressure worsened with coughing. She tried Tylenol and ibuprofen with no relief. Change in position did not change the chest pressure. She denied peripheral edema, recent travel or immobilization, OCP use or hormone replacement therapy. She denies history of DVT/PE. She denies personal or family cardiac history. Of note she states that she was advised stopping her metoprolol for hypertension/palpitations this past by her PCP. At the time of interview all of her symptoms seem to have resolved. Initial vitals: BP 160/108, OH 125 bpm, 97.4 F, 98% on room air Initial labs: WBC 10.3, hemoglobin 13.8, platelets 332, D-dimer 0.23, sodium 138, potassium 4.6hemolyzed, chloride 103, BUN 8, creatinine 0.63, troponin x 2: <0.012 EKG: Sinus tachycardia with ventricular rate 124 bpm, no ST segment changes, QTc 444 ms Chest x-ray: No acute process, no significant change from prior Brain CT: No acute intracranial hemorrhage or midline shift is seen CT angio head/neck: No significant vascular abnormality seen Patient admitted for evaluation of atypical chest pain and left upper extremity weakness. Neurology consulted, PT OT consulted, troponins trended, cardiac telemetry placed, neurochecks placed, 2D echo ordered, lipid panel, TSH and free T4 ordered. Lipid panel is triglyceride 109, cholesterol 200, LDL is 134 and HDL is 44. TSH normal at 4.4, troponins flattened out at less than 0.0 12. 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 Patient did not have any new or worsening symptoms throughout hospital stay. No complications occurred throughout hospital stay. Patient cleared for discharge today. Patient prescribed atorvastatin 20 mg p.o. daily and aspirin 81 p.o. daily and advised to continue current medications. She is advised to follow-up with PCP and neurology on outpatient basis. She may need further imaging as well as follow-up with neurovascular surgeon. She may also need further event monitor, she had 1 in the past, may need to consider doing a loop recorder. Final Diagnosis: #. Acute left upper extremity weakness unknown exact etiology #. Atypical chest pain, ACS ruled out #. Obesity, BMI 33.7 #. Depression #. Anxiety Physical examination: Vital signs reviewed General: non toxic, no distress Derm: no unusual rashes/lesions, warm Head: atraumatic, normocephalic, symmetric Eyes: EOMI, anicteric sclera, pupils equal round reactive to light ENT: Nose and ears atraumatic Neck: No cervical lymphadenopathy, trachea midline, supple Mouth: no lip lesion, mucus membranes moist Cardiovascular: S1S2 reg, no murmur Lungs: CTA bilateral, no rhonchi, no rales, no accessory muscle use Abdominal: soft, nondistended, nontender to palpation, no guarding Ext: muscle strength 5 out of 5 in all 4 extremities grossly, no gross muscle atrophy, no contractures, positive dorsalis pedis pulse bilateral, no edema Neuro: CN II-XI grossly intact, no gross focal neuro deficits Psych: Alert, oriented, appropriate affect and mood A total of 38 minutes of time were spent preparing this complex discharge summary. Patient was discharged on 05/31/24 at 1641. I have seen and evaluated the patient today. Discussed with the resident and agree with the residents finding and plan as documented in the resident's note. Changes highlighted in blue font. Patient Condition at Discharge: Stable Plan - Discharge Summary New Discharge Prescriptions: New Aspirin 81 mg PO DAILY #90 tab Atorvastatin [Lipitor] 20 mg PO HS #90 tab Continue ARIPiprazole [Abilify] 5 mg PO HS buPROPion XL [Wellbutrin XL] 300 mg PO HS Semaglutide [Wegovy] 1 mg SQ WE Discharge Medication List ARIPiprazole [Abilify] 5 mg PO HS 05/30/24 [History] Semaglutide [Wegovy] 1 mg SQ WE 05/30/24 [History] buPROPion XL [Wellbutrin XL] 300 mg PO HS 05/30/24 [History] Aspirin 81 mg PO DAILY #90 tab 05/31/24 [Rx] Atorvastatin [Lipitor] 20 mg PO HS #90 tab 05/31/24 [Rx] Follow up Appointment(s)/Referral(s): Enrrique Wen DO [Primary Care Provider] - 1-2 days Patient Instructions/Handouts: Weakness (DC) Activity/Diet/Wound Care/Special Instructions: Please see PCP, and neurology outpatient. Discharge Disposition: HOME SELF-CARE
[2024-05-31 17:59] VITALS: BP 125/83; PULSE 86; RESP 20; TEMP 98.7
[2024-05-31] MEDS ORDERED: ARIPiprazole 5 MG TAB PO SCH (21:00)
[2024-05-31] MEDS ORDERED: buPROPion XL 300 MG TAB.ER.24H PO SCH (21:00)
[2024-05-31] MEDS ORDERED: ATORVASTATIN 20 MG TAB PO SCH (21:00)
[2024-06-01 02:51] LABS: HIV 2 AB Non-Reactive (Non-Reactive); HIV AB P24 Non-Reactive (Non-Reactive); HIV P24 AG Non-Reactive (Non-Reactive)
--- NOTE | 2024-06-01 10:43 | CA ---
Transthoracic Echo Report Name: Hannah Carrion Age: 33 Gender: F : 1990 Exam Date: 05/31/2024 10:43 Exam Location: [facility] Ht (in): 62 Wt (lb): 184 Ordering Physician: Arin Pratt MD Attending/Referring Phys: Steeler Chris Yanez RDCS Procedure CPT: Indications: Thrombus Cardiac Hx: Technical Quality: Good Contrast 1: Total Dose (mL): Contrast 2: Total Dose (mL): MEASUREMENTS (Male / Female) Normal Values 2D ECHO LV Diastolic Diameter PLAX 4.8 cm 4.2 - 5.9 / 3.9 - 5.3 cm LV Systolic Diameter PLAX 3.1 cm IVS Diastolic Thickness 0.9 cm 0.6 - 1.0 / 0.6 - 0.9 cm LVPW Diastolic Thickness 0.9 cm 0.6 - 1.0 / 0.6 - 0.9 cm LV Relative Wall Thickness 0.4 RV Internal Dim ED PLAX 2.6 cm LVOT Diameter 1.7 cm LA Systolic Diameter LX 3.6 cm 3.0 - 4.0 / 2.7 - 3.8 cm LA Volume 30.3 cm??? 18 - 58 / 22 - 52 cm??? LA Volume Index 15.6 cm???/m??? 16 - 28 cm???/m??? DOPPLER MV Area PHT 4.5 cm??? Mitral E Point Velocity 61.8 cm/s Mitral A Point Velocity 46.5 cm/s Mitral E to A Ratio 1.3 MV Deceleration Time 169.5 ms FINDINGS Left Ventricle Left ventricular ejection fraction is estimated at 60-65 %. Normal left ventricular systolic function with. no obvious regional wall motion abnormalities. Left ventricular wall thickness normal. Right Ventricle Mild to moderate right ventricular dilatation withn normal systolic function. Unable to estimate the right ventricular systolic pressure. Right Atrium Normal right atrial size. Negative agitated saline bubble study for right to left shunt. Left Atrium Normal left atrial size. Mitral Valve Structurally normal mitral valve. No mitral stenosis. No mitral regurgitation. Aortic Valve Trileaflet aortic valve. No aortic valve stenosis or regurgitation. Tricuspid Valve Structurally normal tricuspid valve. No tricuspid stenosis. Trace tricuspid regurgitation. Pulmonic Valve Structurally normal pulmonic valve. No pulmonic stenosis. No pulmonic regurgitation. Pericardium No pericardial effusion. Aorta Normal size aortic root and proximal ascending aorta. CONCLUSIONS Left ventricular ejection fraction is estimated at 60-65 %. No obvious regional wall motion abnormalities. Mild to moderate right ventricular dilatation withn normal systolic function. No right to left intracardiac shunting on bubble study No significant valvular dysfunction Previewed by: Dr Iain Richard (Electronically Signed) Final Date: 01 June 2024 10:43
[2024-06-01 14:18] LABS: C-ANCA <1:20 Titer (<1:20)
== END 2024-05-31 19:30 | disposition home or self-care (01) ==
LOC: EC 17:24 → 6NMEDSUR 23:01
PROVIDERS: ADMIT Internal Medicine; ATTEND Internal Medicine
DX: R53.1 Weakness (principal); R07.89 Other chest pain; R29.700 NIHSS score 0; R00.0 Tachycardia, unspecified; E66.9 Obesity, unspecified; F32.A Depression, unspecified; F41.9 Anxiety disorder, unspecified; I10 Essential (primary) hypertension; K21.9 Gastro-esophageal reflux disease without esophagitis; Z68.33 Body mass index [BMI] 33.0-33.9, adult; Z79.899 Other long term (current) drug therapy; Z82.0 Family history of epilepsy and other diseases of the nervous system; Z88.8 Allergy status to other drugs, medicaments and biological substances; Z88.2 Allergy status to sulfonamides; Z88.0 Allergy status to penicillin
CPT/HCPCS: 96361; 96374; 99285; 36415; 93005; 93306; 86255; 85379; 80061; 80053; 80048; 85652; 84443; 86790; 82607; 83735; 84484; 85025 ×2; 85610; 85730; 86618; 86780; 86038; 87390; 71046; 70496; 70450; 70498; 70553; 72156; G0378 ×2; J2405; Q9967; A9585